=== PATIENT | female | born 1940 | race Caucasian/White ===

== ENCOUNTER 2023-08-09 23:05 | Emergency (ER) | payer OTHER, SELFPAY ==
[2023-08-09 23:08] VITALS: BP 164/74
--- NOTE | 2023-08-09 23:59 | ED.GENMED ---
Addendum entered and electronically signed by Benton Read Jr., PA-C 08/13/23 09:54:
The patient was contacted in regard to a positive urine culture. Case was discussed with the patient and she claims that she will be following up with the primary care doctor today we will have a discussion of potential antibiotics at which is an
roughly 1 hour from my discussion with her.
Original Note:
History of Present Illness
General
Chief Complaint: Fall
Source: patient and family
Exam Limitations: none
Time Seen by Provider: 08/09/23 23:33
Nursing documentation reviewed up to this point in time: agreed with
Travel History
Have you had any contact with someone who has COVID-19?: No
Do you have any symptoms of coronavirus? Fever > 100 degrees, chills, cough, shortness of breath, sore throat, loss of taste or smell, muscle aches, or headache?: No
History of Present Illness
History of Present Illness:
Pleasant 82-year-old female presents with head injury, right shoulder pain and right finger pain. Patient has a history of right hip replacement and is due for a left hip replacement. She sees Dr. Ibrahim, orthopedics. Patient was not in good enough
shape for left hip replacement surgery so they were going to start with an injection. They attempted an injection in the office but she was too contracted to get the placement. She is scheduled to get an injection under fluoroscopy. Due to the
contractures and her inability to walk easily, she has been sitting much of the day. Tonight she was in her chair at home and wanted to reach for something on a nearby table and leaned over and struck her head. She had bleeding but denied loss of
consciousness. She did hurt her right shoulder and right hands. Reports no other injury. Patient lives with daughter in their home. Daughter is concerned because patient is having difficulty navigating steps. Her bedroom is on the second floor.
Patient on Pradaxa for atrial fibrillation.
Vital signs are stable. Patient not hypoxic
Nursing note reviewed. I agree with nursing documentation up to this point in time.
Home Meds and allergies reviewed.
NUMBER AND COMPLEXITY OF PROBLEMS ADDRESSED AT THE ENCOUNTER
� Chronic conditions affecting care: Atrial fibrillation, chronic hip pain, semiacute contractures,
� Acute Exacerbation and/or Progression of Chronic Illness: Increased pain from hip.
� Differential Diagnosis includes: Head injury, concussion, intracerebral bleed,
AMOUNT AND/OR COMPLEXITY OF DATA TO BE REVIEWED AND ANALYZED
I performed an independent evaluation of the following and my interpretation is:
EKG:
CT:
CT cervical spine
Comparison: CT head and cervical spine 06/09/2023
IMPRESSION:
CT head:
Right parietal scalp hematoma
No calvarial fracture.
No acute intracranial findings
Global cerebral volume loss and chronic small vessel ischemic changes in white matter
CT cervical spine:
No traumatic injury. No fracture or significant malalignment of the cervical spine
Appreciable regional soft tissue swelling
Prominent multilevel degenerative changes
X-rays: Small fracture Right hand third digit
Ultrasound:
Laboratory Studies: H&H is 11.3/35.2. BUN is 39 creatinine 0.9
Other:
Review of other/old records:
Clinical information was obtained by an independent historian: Daughter who is present at the bedside
Prescriptions/Medications Considered but not given:
Further testing considered but not performed:
RISK OF COMPLICATIONS AND/OR MORBIDITY OR MORTALITY OF PATIENT MANAGEMENT
Social determinants of health affecting care: Good Social Support. Lives on the second floor and is having difficulty climbing steps
Discussion with other providers:
Escalation of care including admission/observation vs risk of discharge considered:
CRITICAL CARE NOTE:
Total Time (exclusive of procedures):
Update:
Past History
Past History
ED Past Medical History: Arrthythmia (Atrial fib), Cancer, HTN, Hypercholesterolemia, NIDDM, Other ('mrsa') and Other (Arthritis, abd hernias)
ED Past Surgical History: Appendectomy, Gynecological (Hysterectomy) and Orthopedic
Social History
Tobacco: Non-smoker
Alcohol: None
Drug: None
Personal:
Living: with family (Resides with her daughter)
Employment: Retired
Family History
Family History: Diabetes and Other (Stroke)
Review of Systems
Review of Systems
Allergies reviewed?: Yes
All Other Systems: ROS reviewed and negative except as documented in HPI and ROS
Psychiatric: Reports depression (Patient has chronic depression daughter states that her duloxetine dose was increased.) and anxiety
Phy Exam
General Physical Exam
General Presentation: mild distress
General age: other
General Skin: warm and dry
General Habitus: normal
General Mental: alert
General Hydration: appears well hydrated
ENT Exam
ENT Exam: EOMI, pharynx normal, neck supple and normocephalic
Eye Exam
Eye Exam: PERRL, cornea clear and conjunctiva normal
Cardiovascular Exam
Cardiovascular Exam: irregularly irregular
Pulmonary Exam
Pulmonary Exam: lungs clear, no respiratory distress, no rales, no crackles, no rhonchi, no stridor, no wheezing and no cough
Gastrointestinal Exam
Gastrointestinal Exam: normal bowel sounds, non tender, soft, no organomegaly, no pulsatile mass and non distended
Neurological Exam
Neurological Exam: alert, oriented x3, no motor deficits and speech normal
Musculoskeletal Exam
Musculoskeletal Exam: neuro vasc intact and other (Ecchymosis above the fingers 2 and 3 on the right)
Skin Exam
Skin Exam: normal color, warm/dry, no rash and no petechia
Psychiatric Exam
Psychiatric Exam: normal mood/affect
Course
Orders/Labs/Results
Orders:
Orders
08/09/23 23:31
Urinalysis Reflex To Culture Urgent
Date Specimen was Collected: 08/10/23
Time Specimen was Collected: 00:56
08/09/23 23:53
Complete Blood Count/With Diff Urgent
Comprehensive Metabolic Panel Urgent
PTT Urgent
Prothrombin Time Urgent
Troponin I Urgent
08/10/23 00:01
CR Hand - Right Min 3 Views Urgent
Reason For Exam: fall
CR Shoulder, Trauma - Right Urgent
Reason For Exam: pain from fall
08/10/23 00:15
CT Cervical Spine W/o Iv Contr Urgent
Reason For Exam: fall
CT Head W/o Iv Contrast Urgent
Reason For Exam: fall
08/10/23 01:05
Urine Microscopic Reflex Cult Urgent
Urine Culture Urgent
[facility]AN[facility] Source: U
Specimen Description:
Date Specimen was Collected: 08/10/23
Time Specimen was Collected: 00:56
08/10/23 01:37
Tramadol HCl [Ultram] 50 mg PO NOW STA
08/10/23 02:14
Fosfomycin [Monurol] 3 gm PO ONCE ONE
Abnormal Lab Results
08/09/23 08/10/23
23:53 01:05
RBC 3.84 L 10^6/uL
(4.20-5.40)
Hgb 11.3 L g/dL
(12.0-16.0)
Hct 35.2 L %
(37.0-47.0)
MCHC 32.1 L g/dL
(33.0-37.0)
RDW 14.6 H %
(11.5-14.5)
Absolute Lymphs (auto) 0.6 L 10^3/uL
(1.2-3.4)
Absolute Monos (auto) 0.7 H 10^3/uL
(0.1-0.6)
Neutrophils % 81.9 H %
(42.2-75.2)
Lymphocytes % 7.8 L %
(20.5-51.1)
PT 16.9 H Sec
(11.4-14.6)
APTT 38.7 H Sec
(23.4-35.0)
Sodium 134 L mmol/L
(135-145)
BUN 39 H mg/dl
(7-17)
Glucose 140 H mg/dl
(70-99)
Ur Occult Blood Reflex 2+ A
(Negative)
Urine Nitrite (Reflex) Positive A
(Negative)
Urine Bilirubin 1+ A
(Negative)
Leukocyte Esterase Rfl 2+ A
(Negative)
Urine RBC 30-40 A /HPF
(0-2)
Urine WBC (Reflex) 50-60 A /HPF
(0-5)
Urine Bacteria (Reflex) Many A
(Negative)
08/09/23 23:53
08/09/23 23:53
Vital Signs
Initial and Last Documented VS:
Initial Vital Signs
Temp Pulse Resp BP Pulse Ox
97.7 F 76 17 164/74 99
08/09/23 23:08 08/09/23 23:08 08/09/23 23:08 08/09/23 23:08 08/09/23 23:08
Last Documented Vital Signs
Temp Pulse Resp BP Pulse Ox
97.7 F 75 18 162/72 96
08/09/23 23:08 08/10/23 03:30 08/10/23 03:30 08/10/23 03:30 08/10/23 03:30
*Critical Care Note
Total Time (30-74mins, 75-104mins- exclusive of procedures): Not Applicable
Update Note
Update Note:
08/10/2023 0157 AM: Discussed admission with this patient. Patient absolutely refuses. Daughter feels that it would be safe to take patient home. She has a recliner that daughter can move to the first floor.
Laceration to right scalp is very superficial almost an abrasion. No repair necessary.
ED Attending Note
-
Portions of this chart may have been created with voice recognition software.� Occasional wrong word or��sound alike� substitutions may have occurred due to the inherent limitations of voice recognition software.
Discharge Plan
Departure
Patient Disposition: Home (Routine Discharge)
Date of Disposition: 08/10/23
Time of Disposition: 02:53
Patient with high blood pressure during this ER visit?: Yes
Condition: Fair
Discharge Problem:
Fall, Contusion of scalp, Fracture of finger, Chronic hip pain, Acute UTI
Instructions: Wound Care (DC), Head Injury in Adults (DC), Contusion (DC), Preventing falls in adults, Finger Fracture (DC), Urinary Tract Infection, Adult ED, BLOOD PRESSURE
Prescriptions:
No Action
metformin 500 MG tablet
500 mg PO BID@0800,1700
prednisone 1 MG tablet
5 mg PO DAILY
cholecalciferol (vitamin D3) 2,000 UNITS tablet
2,000 unit PO DAILY
dabigatran etexilate [Pradaxa] 150 MG capsule
150 mg PO BID
carvedilol 12.5 MG tablet
12.5 mg PO BID
amoxicillin 500 MG capsule
2,000 mg PO DAILY PRN (Reason: prior to dental procedures)
losartan 50 mg tablet
50 mg PO BID
atorvastatin 20 mg tablet
20 mg PO DAILY
amiodarone 200 mg tablet
200 mg PO DAILY
amlodipine 2.5 mg tablet
2.5 mg PO DAILY
duloxetine 60 mg capsule,delayed release(DR/EC)
60 mg PO DAILY
vitamin E 268 mg (400 unit) Capsule
180 mg PO DAILY
calcium citrate 200 mg (950 mg) Tablet
600 mg PO DAILY
Myrbetriq 50 mg tablet extended release 24 hr
50 mg PO DAILY
acetaminophen 325 mg Tablet
650 mg PO Q6HPRN PRN (Reason: mild pain/ fever>100.5F) Qty: 0 0RF
Referrals:
Yrn Chavez MD [Active] -
Thomas Dill MD [Family Provider] -
Interventions
Interventions:
*Risk Screen - Suicide Last Done: 08/09/23 23:08
*General Assessment Last Done: 08/09/23 23:08
*Neglect/Abuse Screening Last Done: 08/09/23 23:08
ED- Fall Risk Assessment Last Done: 08/09/23 23:08
*ED COVID-19 Vaccine History Last Done: 08/09/23 23:08
*Nursing Disposition Last Done: 08/10/23 03:30
ED-Musculoskeletal Assessment Last Done: 08/10/23 00:00
ED- Neurological Assessment Last Done: 08/10/23 00:00
ED-Skin Assessment Last Done: 08/09/23 23:41
Discharge Date and Time
Discharge Date/Time: 08/10/23 03:30
[2023-08-10] VITALS: BMI 27.0
[2023-08-10 00:07] LABS: % Basophils 0.3 % (0-2); % Eosinophils 0.8 % (0-6); % Immature Granulocytes 0.4 % (0-0.5); % Lymphocytes 7.8 % (20.5-51.1); % Monocytes 8.8 % (1.7-9.3); % Neutrophils 81.9 % (42.2-75.2); Absolute Eosinophils 0.1 10^3/uL (0-0.7); Absolute Lymphocytes 0.6 10^3/uL (1.2-3.4); Absolute Monocytes 0.7 10^3/uL (0.1-0.6); Absolute Neutrophils 6.5 10^3/uL (1.4-6.5); Hematocrit 35.2 % (37.0-47.0); Hemoglobin 11.3 g/dL (12.0-16.0); Mean Corp Hgb Conc. 32.1 g/dL (33.0-37.0); Mean Corpuscular Hgb 29.4 pg (27.0-31.0); Mean Corpuscular Volume 91.7 fL (81.0-99.0); Mean Platelet Volume 9.6 fL (7.4-10.4); Nucleated Red Blood Cells % 0 %; Platelet Count 271 10^3/uL (130-400); Red Blood Cell Count 3.84 10^6/uL (4.20-5.40); Red Cell Dist. Width 14.6 % (11.5-14.5)
[2023-08-10 00:16] LABS: INR 1.37; PT 16.9 Sec (11.4-14.6)
[2023-08-10 00:17] LABS: APTT 38.7 Sec (23.4-35.0)
[2023-08-10 00:29] LABS: ALT (SGPT) 23 U/L (0-35); AST (SGOT) 32 U/L (14-36); Albumin 3.8 g/dl (3.5-5.0); Alkaline Phosphatase 75 U/L (38-126); Blood Urea Nitrogen 39 mg/dl (7-17); Calcium 8.7 mg/dl (8.4-10.2); Carbon Dioxide 28 mmol/L (22-30); Chloride 102 mmol/L (98-107); Estimated Creatinine Clearance 38 ml/min; Glucose 140 mg/dl (70-99); Potassium 4.5 mmol/L (3.5-5.1); Sodium 134 mmol/L (135-145); Total Bilirubin 0.7 mg/dl (0.2-1.3); Total Protein 6.6 g/dl (6.3-8.2); eGFR > 60.00
[2023-08-10 00:32] LABS: Troponin I < 0.012 ng/ml
[2023-08-10 01:30] LABS: Urine Albumin Trace (Neg - Trace); Urine Bilirubin 1+ (Negative); Urine Character Slightly Cloudy (Clear); Urine Color Yellow; Urine Glucose Negative (Negative); Urine Ketone Negative (Negative); Urine Leukocyte 2+ (Negative); Urine Nitrite Positive (Negative); Urine Occult Blood 2+ (Negative); Urine Urobilinogen Negative (Neg - 1+)
[2023-08-10 01:45] LABS: Urine Red Blood Cell 30-40 /HPF (0-2)
[2023-08-10 01:46] LABS: Urine Bacteria Many (Negative); Urine White Cell 50-60 /HPF (0-5)
[2023-08-10] MEDS: ULTRAM 50 MG PO (01:49)
[2023-08-10 01:52] VITALS: BP 150/71
[2023-08-10] MEDS: MONUROL 3 GM PO (02:35)
[2023-08-10 03:00] VITALS: BP 162/72
[2023-08-10 03:30] VITALS: BP 162/72
== END 2023-08-10 03:30 | disposition home or self-care (01) ==
LOC: EMR 23:05
PROVIDERS: EMERGENCY PHYSICIAN Student in an Organized Health Care Education/Training Program; FAMILY PHYSICIAN Internal Medicine Geriatric Medicine
DX: N39.0 Urinary tract infection, site not specified (principal); S62.609A Fracture of unspecified phalanx of unspecified finger, initial encounter for closed fracture; S00.03XA Contusion of scalp, initial encounter; M25.559 Pain in unspecified hip; M79.644 Pain in right finger(s); M25.511 Pain in right shoulder; W22.8XXA Striking against or struck by other objects, initial encounter; M62.40 Contracture of muscle, unspecified site; R26.2 Difficulty in walking, not elsewhere classified; I67.82 Cerebral ischemia; I48.91 Unspecified atrial fibrillation; F32.A Depression, unspecified; F41.9 Anxiety disorder, unspecified; E78.00 Pure hypercholesterolemia, unspecified; E11.9 Type 2 diabetes mellitus without complications; I10 Essential (primary) hypertension; M19.90 Unspecified osteoarthritis, unspecified site; G89.29 Other chronic pain; Z96.641 Presence of right artificial hip joint; Z86.14 Personal history of Methicillin resistant Staphylococcus aureus infection; Z85.3 Personal history of malignant neoplasm of breast; Z79.01 Long term (current) use of anticoagulants; Z79.84 Long term (current) use of oral hypoglycemic drugs; Z88.5 Allergy status to narcotic agent; Z88.8 Allergy status to other drugs, medicaments and biological substances; Z91.048 Other nonmedicinal substance allergy status
CPT/HCPCS: 99285; 70450; 72125; 73030; 73130; 80053; 81003; 81015; 84484; 85025; 85610; 85730; 87077; 87086; 87186

== ENCOUNTER 2024-01-30 23:47 | Emergency (ER) | payer OTHER, SELFPAY ==
[2024-01-30 23:51] VITALS: BP 185/96
--- NOTE | 2024-01-31 01:05 | ED.GENMED ---
Addendum entered and electronically signed by Marianne Lezama PA-C 02/03/24 10:52:
Klebsiella positive urine, I spoke with the patient and she is uncomfortable having urinary frequency and urgency and cannot hold her urine but she is not having any systemic symptoms so I will call her in Keflex which this should be sensitive to 4
times a day for 7 days. Additionally the patient is complaining that the rash that she had in her right groin and right back is worse and more painful and it definitely looks like shingles. I reviewed the ED attending's note and she had suspected
shingles but did not start her on antiviral. It has been several days however because of her steroid chronic use for her arthritis I will put her on the valacyclovir as well however I strongly encouraged the patient to either come back in for
reevaluation if she is worse or see her doctor as soon as possible tomorrow. It does not sound like it is causing dermatomes
Original Note:
History of Present Illness
General
Chief Complaint: Abdominal Symptoms
Source: patient, family (Daughter whom the patient resides with.) and previous hospital records (ED visit August of this year as well as June 2023 after suffering similar falls.)
Exam Limitations: none
Time Seen by Provider: 01/31/24 00:03
Nursing documentation reviewed up to this point in time: agreed with
History of Present Illness
History of Present Illness:
This is an 83-year-old woman who resides at home with her daughter. She has longstanding history of severe osteoarthritis, chronic ambulatory dysfunction with limited ambulation, uses a rollator at home. She has history of frequent falls and
suffered a mechanical fall 1 week ago while reaching for EpiPen and paper while talking on the phone with her daughter. Patient believes she fell onto her right side and did strike her head but states her head strike was 'minor'. No loss of
consciousness and she has been ambulatory since that fall but complains of severe aching pain right hip radiating to her right anterolateral proximal thigh.
She has history of chronic left hip, follows with orthopedics, Dr. Javed and underwent steroid injection to her left hip approximately a year ago and then repeat injection September of this year. No improvement in pain despite these injections and in
fact patient and daughter believe her left hip pain has worsened since her last injection in September.
She follows with rheumatology due to chronic osteoarthritis, chronically maintained on prednisone 4 mg daily. She has been on this dose for approximately the past year.
History of PAF chronically maintained on amiodarone as well as Pradaxa.
She complains of intermittent dysphagia which she describes as occasional food and/or pills being stuck in her distal throat/esophagus. Similar episode happened when she swallowed a pill 3 days ago. She has had no coughing or gagging with
swallowing but has had somewhat decreased appetite since that incident with intermittent nausea but no vomiting. She reports 3-day history of loose stools, passing several nonbloody loose stools over the past 3 days but no bowel movement today.
She is generally chronically constipated and feels the urge to pass a bowel movement but has not done so today.
She has history of intermittent UTIs and has had mild increased urinary frequency over the past few days. She denies neck pain nor back pain or flank pain.
She has not had a fever. No palpitations, no dizziness nor lightheadedness but does note mild posterior headache tonight.
Daughter states physical therapy is scheduled to start February 03. There has also been consideration for acute respite care.
She does note chronic pain, chronic stiffness, takes Tylenol several times a day as well as tramadol.
Chronic bilateral lower extremity edema has been unchanged.
Chronically sleeps in a recliner.
Past History
Past History
ED Past Medical History: Arrthythmia (Atrial fib), Cancer, HTN, Hypercholesterolemia, NIDDM, Other ('mrsa') and Other (Severe osteo arthritis, chronic ambulatory dysfunction, frequent falls, UTIs, chronic constipation, abd hernias)
ED Past Surgical History: Appendectomy, Gynecological (Hysterectomy) and Orthopedic
Social History
Tobacco: Non-smoker
Alcohol: None
Drug: None
Personal:
Living: with family (Resides with her daughter)
Employment: Retired
Family History
Family History: Diabetes and Other (Stroke)
Phy Exam
Physical Exam
Physical Exam:
GENERAL: 83-year-old woman appears her stated age, appears somewhat chronically debilitated, preferentially keeping her eyes closed during exam but answering questions appropriately, easily conversant. Daughter is at bedside.
EYE: Head is normocephalic, atraumatic, pupils equal and reactive. Extraocular muscles intact. Anicteric
NECK: Supple, nontender, no meningismus, no significant adenopathy. Full range of motion without difficulty nor pain.
ENT: posterior pharynx is clear, oral mucosa is minimally dry. TM clear b/l, nares patent without rhinorrhea.
CARDIAC: Regular rate and rhythm. 2/6 holosystolic murmur
LUNGS: Clear breath sounds bilaterally, no acute respiratory distress, no wheezes/rales/rhonchi. No chest wall tenderness.
ABDOMEN: Soft, nondistended, without focal tenderness, palpable firm stool left lower quadrant, no r/g, no cvat. normoactive BS.
BACK: No midline bony tenderness. Marked thoracic kyphosis. Marked difficulty assisting patient to sit up requiring daughter and myself to assist with repositioning from supine to sitting upright. Marked truncal as well as bilateral hip,
bilateral knee joint stiffness.
NEUROLOGICAL: Alert and oriented x3, no focal neuro deficits. Motor strength is 5/5 bilateral upper extremities, +4/5 bilateral lower extremities. Gross sensation is intact.
SKIN: Warm and dry, normal color, scattered small circular erythematous plaques to right posterior trunk, bilateral anterolateral thighs which daughter states are chronic in nature. She does however have small grouping of tiny erythematous papular
vesicular eruption right anterior distal groin.
MUSCULOSKELETAL: +1-2 pitting edema bilateral lower extremities, mildly diminished dorsalis pedis pulse on the left compared to right, minimally sluggish capillary refill left toes, markedly limited range of motion bilateral hips with moderate
stiffness and mild to moderate pain with range of motion bilateral hips. There is mild crepitus left hip and left knee with range of motion. No gross deformity. No leg length discrepancy.
PSYCH: Normal and appropriate interaction.
Course
Orders/Labs/Results
Orders:
Orders
01/31/24 00:40
CT Head W/o Iv Contrast Urgent
Comment:
Reason For Exam: FREQUENT FALLS, HEAD INJURY, POST H/A
Hips, Bilat 3-4 view W/AP Pelvis [CR Hips KIKI w/wo Pel 3-4 Vw] Urgent
Comment:
Reason For Exam: acute on chronic b/l hip pain; fall 1 week ago
Include a pelvis x-ray?: Yes
01/31/24 00:41
CR Obstruct Series W/pa Chest Urgent
Comment:
Reason For Exam: Constipation, lower abd discomfort, nausea
01/31/24 00:42
Electrocardiogram (*1) Urgent
Reason for Study: Shortness of Breath
EKG- Treatment ONCE
01/31/24 01:07
Urinalysis Reflex To Culture Urgent
Date Specimen was Collected: 01/31/24
Time Specimen was Collected: 01:06
Urine Microscopic Reflex Cult Urgent
Urine Culture Urgent
HIMANSHU Source: U
Specimen Description:
Date Specimen was Collected: 01/31/24
Time Specimen was Collected: 01:06
01/31/24 02:01
CPK [Creatine Phosphokinase] Urgent
CRP [C-Reactive Protein] Urgent
Complete Blood Count/With Diff Urgent
Comprehensive Metabolic Panel Urgent
Lipase Urgent
NT-proBNP Urgent
Sed Rate [Erythrocyte Sed Rate] Urgent
TSH Reflex To Free T4 Urgent
Troponin I Urgent
01/31/24 02:41
CT Lower Ext W/o Iv Cont Rt Urgent
Comment:
Reason For Exam: severe pain R hip. (?)mitzi-prosthetic fx
Morphine Sulfate 2 mg IV NOW STA
Abnormal Lab Results
01/31/24 01/31/24
01:07 02:01
RBC 3.56 L 10^6/uL
(4.20-5.40)
Hgb 10.3 L g/dL
(12.0-16.0)
Hct 32.1 L %
(37.0-47.0)
MCHC 32.1 L g/dL
(33.0-37.0)
RDW 14.8 H %
(11.5-14.5)
Absolute Lymphs (auto) 0.6 L 10^3/uL
(1.2-3.4)
Absolute Monos (auto) 0.8 H 10^3/uL
(0.1-0.6)
Neutrophils % 77.5 H %
(42.2-75.2)
Lymphocytes % 8.6 L %
(20.5-51.1)
Monocytes % 11.4 H %
(1.7-9.3)
ESR 38 H mm/hour
(0-20)
Carbon Dioxide 31 H mmol/L
(22-30)
Glucose 124 H mg/dl
(70-99)
Total Protein 6.2 L g/dl
(6.3-8.2)
Leukocyte Esterase Rfl Trace A
(Negative)
Urine Bacteria (Reflex) Moderate A
(Negative)
01/31/24 02:01
01/31/24 02:01
Vital Signs
Initial and Last Documented VS:
Initial Vital Signs
Temp Pulse Resp BP Pulse Ox
98.0 F 83 20 185/96 99
01/30/24 23:51 01/30/24 23:51 01/30/24 23:51 01/30/24 23:51 01/30/24 23:51
Last Documented Vital Signs
Temp Pulse Resp BP Pulse Ox
98.4 F 84 11 161/69 96
01/31/24 04:57 01/31/24 05:17 01/31/24 05:17 01/31/24 05:17 01/31/24 04:57
MDM/Problems Addressed
Differential Diagnosis Includes:
Concern for acute on chronic osteoarthritis with acute on chronic ambulatory dysfunction.
With history of fall, head injury 1 week ago, headache, maintained on Pradaxa, concern for traumatic intracranial injury thus will check CT of the head.
With reported decreased oral intake over the past several days, nausea, loose stools concern for acute kidney injury/dehydration, electrolyte abnormality.
Concern for UTI, occult hip/pelvis fracture.
Will check obstruction series, bilateral hip and pelvis x-ray.
Will check labs, inflammatory markers, urinalysis.
*Radiology
Radiology exam reviewed: preliminary read by ED provider ( Obstruction series unremarkable. Stable chronic right lateral rib deformity, nonspecific bowel gas. No bowel obstruction nor significant constipation. Advanced/severe DJD of left hip.
Right total hip replacement. I question a periprosthetic fracture right hip at lesser trochanter. A new findi) and radiology read reviewed (CT of the head shows no acute traumatic findings.)
*Pulse Oximetry
Patient hypoxic: no
*EKG
Interpreted by ED Provider?: Yes
Interpretation: normal
Comparison EKG: changes noted (Normal sinus rhythm has replaced atrial fibrillation noted August 2020)
Rate: normal
Rhythm: sinus
[place]: normal axis
Interval: normal interval
QRS Pattern: normal QRS
Ischemia: no ischemia
*Produce Inspector Interpretation
Rate: normal
Interpretation: normal
Rhythm: sinus
*Critical Care Note
Total Time (30-74mins, 75-104mins- exclusive of procedures): Not Applicable
Update Note
Update Note:
Chest x-ray/obstruction series essentially unremarkable.
Hip x-rays show severe/advanced DJD of left hip. Right total hip replacement with questionable periprosthetic fracture lesser trochanter that is new compared to previous film 2020.
Will check CT right hip to assess for potential periprosthetic fracture.
CT of the head shows no acute traumatic findings.
Patient currently sitting up on side of the stretcher, overall appears well. She does admit to chronic flexion contracture of her left hip and feels best when she is sitting upright.
Will give a small IV dose of morphine prior to the CT.
01/31/[address] of the right hip shows no acute fracture.
Labs are essentially unremarkable. Minimally elevated sed rate of 38, normal CRP. BNP minimally elevated at 900 but no evidence of CHF on chest x-ray. Normal troponin, normal TSH.
Urinalysis shows moderate bacteria but only 6-10 WBCs, 3-5 squamous epithelial cells. Not definitively consistent with UTI and currently has no UTI symptoms. Will hold off on antibiotic and instead await urine culture.
Patient does have significant chronic joint pain related to osteoarthritis, overall appears stable.
Right inguinal rash not definitively convincing for herpes zoster. Recommend keeping an eye on rash and if progresses with further grouped/clusters of papulovesicular rash, prompt call to Dr. Dill for initiation of antiviral medication.
She is comfortable being discharged to home.
Recommend prompt follow-up with PCP, Dr. Dill. Could consider referral to dip painter.
She is scheduled to initiate outpatient physical therapy February 03.
ED Attending Note
-
Portions of this chart may have been created with voice recognition software.� Occasional wrong word or��sound alike� substitutions may have occurred due to the inherent limitations of voice recognition software.
Discharge Plan
Departure
Patient Disposition: Home (Routine Discharge)
Date of Disposition: 01/31/24
Time of Disposition: 05:46
Patient with high blood pressure during this ER visit?: No
Condition: Good
Discharge Problem:
Exacerbation of chronic arthritic pain, chronic ambulatory dysfunction, advanced osteoarthritis left hip
Instructions: Osteoarthritis, Fall Prevention for Older Adults
Prescriptions:
No Action
metformin 500 MG tablet
500 mg PO BID@0800,1700
prednisone 1 MG tablet
5 mg PO DAILY
cholecalciferol (vitamin D3) 2,000 UNITS tablet
2,000 unit PO DAILY
dabigatran etexilate [Pradaxa] 150 MG capsule
150 mg PO BID
carvedilol 12.5 MG tablet
12.5 mg PO BID
amoxicillin 500 MG capsule
2,000 mg PO DAILY PRN (Reason: prior to dental procedures)
losartan 50 mg tablet
50 mg PO BID
atorvastatin 20 mg tablet
20 mg PO DAILY
amiodarone 200 mg tablet
200 mg PO DAILY
amlodipine 2.5 mg tablet
2.5 mg PO DAILY
duloxetine 60 mg capsule,delayed release(DR/EC)
60 mg PO DAILY
vitamin E 268 mg (400 unit) Capsule
180 mg PO DAILY
calcium citrate 200 mg (950 mg) Tablet
600 mg PO DAILY
Myrbetriq 50 mg tablet extended release 24 hr
50 mg PO DAILY
acetaminophen 325 mg Tablet
650 mg PO Q6HPRN PRN (Reason: mild pain/ fever>100.5F) Qty: 0 0RF
Referrals:
Thomas Dill MD [Family Provider] - Call in 1-3 days for appt
Blu Ibrahim MD [Active] - Call in 1-3 days for appt
UNKNOWN - PT DOES,NOT KNOW [Unknown Provider] -
Interventions
Interventions:
*Risk Screen - Suicide Last Done: 01/31/24 02:05
*General Assessment Last Done: 01/31/24 01:41
*Neglect/Abuse Screening Last Done: 01/31/24 02:04
ED- Fall Risk Assessment Last Done: 01/31/24 02:06
OV-Wnpkmw-Ajwgkkdmpf Assessment Last Done: 01/31/24 01:36
Discharge Date and Time
Print Language: BRAZILIAN
[2024-01-31 01:15] LABS: Urine Albumin Negative (Neg - Trace); Urine Bilirubin Negative (Negative); Urine Character Clear (Clear); Urine Color Yellow; Urine Glucose Negative (Negative); Urine Ketone Negative (Negative); Urine Leukocyte Trace (Negative); Urine Nitrite Negative (Negative); Urine Occult Blood Negative (Negative); Urine Urobilinogen Negative (Neg - 1+)
[2024-01-31 01:21] LABS: Urine Bacteria Moderate (Negative); Urine Red Blood Cell 0-2 /HPF (0-2)
[2024-01-31 02:09] LABS: % Basophils 0.1 % (0-2); % Eosinophils 2.1 % (0-6); % Immature Granulocytes 0.3 % (0-0.5); % Lymphocytes 8.6 % (20.5-51.1); % Monocytes 11.4 % (1.7-9.3); % Neutrophils 77.5 % (42.2-75.2); Absolute Eosinophils 0.2 10^3/uL (0-0.7); Absolute Lymphocytes 0.6 10^3/uL (1.2-3.4); Absolute Monocytes 0.8 10^3/uL (0.1-0.6); Absolute Neutrophils 5.4 10^3/uL (1.4-6.5); Hematocrit 32.1 % (37.0-47.0); Hemoglobin 10.3 g/dL (12.0-16.0); Mean Corp Hgb Conc. 32.1 g/dL (33.0-37.0); Mean Corpuscular Hgb 28.9 pg (27.0-31.0); Mean Corpuscular Volume 90.2 fL (81.0-99.0); Mean Platelet Volume 9.2 fL (7.4-10.4); Nucleated Red Blood Cells % 0 %; Platelet Count 243 10^3/uL (130-400); Red Blood Cell Count 3.56 10^6/uL (4.20-5.40); Red Cell Dist. Width 14.8 % (11.5-14.5)
[2024-01-31 02:30] VITALS: BP 185/80
[2024-01-31 02:46] LABS: NT-proBNP 953 pg/ml; Troponin I < 0.012 ng/ml
[2024-01-31] MEDS: MORPHINE SULFATE 2 MG IV (02:59)
[2024-01-31 03:03] LABS: TSH Reflex To Free T4 1.05 uIU/ml (0.47-4.68)
[2024-01-31 03:04] LABS: ALT (SGPT) 24 U/L (0-35); AST (SGOT) 32 U/L (14-36); Albumin 3.6 g/dl (3.5-5.0); Alkaline Phosphatase 78 U/L (38-126); Blood Urea Nitrogen 12 mg/dl (7-17); Calcium 9.1 mg/dl (8.4-10.2); Carbon Dioxide 31 mmol/L (22-30); Chloride 99 mmol/L (98-107); Creatine Phosphokinase 43 U/L (30-135); Glucose 124 mg/dl (70-99); Lipase 44 U/L (23-300); Sodium 135 mmol/L (135-145); Total Bilirubin 0.7 mg/dl (0.2-1.3); Total Protein 6.2 g/dl (6.3-8.2); eGFR > 60.00
[2024-01-31 03:51] LABS: Erythrocyte Sed Rate 38 mm/hour (0-20)
[2024-01-31 04:57] VITALS: BP 164/66
[2024-01-31 05:17] VITALS: BP 161/69
[2024-01-31 06:00] VITALS: BP 144/66
== END 2024-01-31 06:44 | disposition home or self-care (01) ==
LOC: EMR 23:47
PROVIDERS: EMERGENCY PHYSICIAN Emergency Medicine; FAMILY PHYSICIAN Internal Medicine Geriatric Medicine
DX: I48.91 Unspecified atrial fibrillation (principal); I10 Essential (primary) hypertension; E78.00 Pure hypercholesterolemia, unspecified; E11.9 Type 2 diabetes mellitus without complications; K59.00 Constipation, unspecified; M16.0 Bilateral primary osteoarthritis of hip; Z79.52 Long term (current) use of systemic steroids; Z82.3 Family history of stroke; Z83.3 Family history of diabetes mellitus; Z87.440 Personal history of urinary (tract) infections; Z90.49 Acquired absence of other specified parts of digestive tract; Z90.710 Acquired absence of both cervix and uterus; Z96.641 Presence of right artificial hip joint
CPT/HCPCS: 99284; 96374; 70450; 73522; 73700; 74022; 80053; 81003; 81015; 82550; 83690; 83880; 84443; 84484; 85025; 85652; 86140; 87077; 87086; 87186; 93005

== ENCOUNTER → 2024-03-07 09:09 | Outpatient (REF) | payer OTHER, SELFPAY ==
[2024-03-07 10:31] LABS: % Basophils 0.1 % (0-2); % Eosinophils 1.9 % (0-6); % Immature Granulocytes 0.4 % (0-0.5); % Lymphocytes 10.8 % (20.5-51.1); % Monocytes 9.3 % (1.7-9.3); % Neutrophils 77.5 % (42.2-75.2); Absolute Eosinophils 0.1 10^3/uL (0-0.7); Absolute Lymphocytes 0.8 10^3/uL (1.2-3.4); Absolute Monocytes 0.7 10^3/uL (0.1-0.6); Absolute Neutrophils 5.6 10^3/uL (1.4-6.5); Hemoglobin 10.5 g/dL (12.0-16.0); Mean Corp Hgb Conc. 30.9 g/dL (33.0-37.0); Mean Corpuscular Hgb 28.8 pg (27.0-31.0); Mean Corpuscular Volume 93.2 fL (81.0-99.0); Mean Platelet Volume 9.8 fL (7.4-10.4); Nucleated Red Blood Cells % 0 %; Platelet Count 288 10^3/uL (130-400); Red Blood Cell Count 3.65 10^6/uL (4.20-5.40); Red Cell Dist. Width 15.4 % (11.5-14.5); White Blood Cell Count 7.2 10^3/uL (4.8-10.8)
[2024-03-07 10:35] LABS: Urine Albumin Negative (Neg - Trace); Urine Bilirubin Negative (Negative); Urine Character Clear (Clear); Urine Color Yellow; Urine Glucose Negative (Negative); Urine Ketone Negative (Negative); Urine Leukocyte 1+ (Negative); Urine Nitrite Negative (Negative); Urine Occult Blood 1+ (Negative); Urine Urobilinogen Negative (Neg - 1+)
[2024-03-07 10:48] LABS: Urine Mucus Few
[2024-03-07 10:49] LABS: Urine Bacteria Few (Negative)
[2024-03-07 10:53] LABS: Erythrocyte Sed Rate 29 mm/hour (0-20)
[2024-03-07 11:00] LABS: NT-proBNP 178 pg/ml
[2024-03-07 11:10] LABS: ALT (SGPT) 20 U/L (0-35); AST (SGOT) 27 U/L (14-36); Albumin 3.9 g/dl (3.5-5.0); Alkaline Phosphatase 67 U/L (38-126); Blood Urea Nitrogen 19 mg/dl (7-17); Calcium 9.1 mg/dl (8.4-10.2); Carbon Dioxide 32 mmol/L (22-30); Chloride 103 mmol/L (98-107); Glucose 120 mg/dl (70-99); HDL Cholesterol 75 mg/dl; LDL Cholesterol, Calculated 77 mg/dl; Potassium 4.1 mmol/L (3.5-5.1); Sodium 143 mmol/L (135-145); Total Bilirubin 0.6 mg/dl (0.2-1.3); Total Cholesterol 165 mg/dl (50-199); Total Protein 6.5 g/dl (6.3-8.2); Triglyceride 68 mg/dl (10-149); Very Low Density Lipoprotein 13 mg/dl (0-30); eGFR > 60.00
[2024-03-07 11:14] LABS: C-Reactive Protein < 5.00 mg/L (0.0-10.00)
[2024-03-07 11:37] LABS: Vitamin D, 25-OH*** 53.1 ng/mL (30-80)
[2024-03-07 11:51] LABS: TSH 1.63 uIU/ml (0.47-4.68)
[2024-03-07 12:23] LABS: Glycohemoglobin (HgbA1c) 6.1 % (4.0-5.6)
== END ==
LOC: RAD 09:09
PROVIDERS: ATTENDING PHYSICIAN Internal Medicine Cardiovascular Disease; FAMILY PHYSICIAN Internal Medicine Geriatric Medicine; OTHER PHYSICIAN Nurse Practitioner Family; REFERRING PHYSICIAN Internal Medicine Rheumatology
DX: Z79.899 Other long term (current) drug therapy (principal); J06.9 Acute upper respiratory infection, unspecified; J47.9 Bronchiectasis, uncomplicated; I48.0 Paroxysmal atrial fibrillation; E11.9 Type 2 diabetes mellitus without complications; I10 Essential (primary) hypertension; E78.2 Mixed hyperlipidemia; I35.8 Other nonrheumatic aortic valve disorders; R06.09 Other forms of dyspnea; R26.2 Difficulty in walking, not elsewhere classified; Z99.89 Dependence on other enabling machines and devices; R53.81 Other malaise; Z13.89 Encounter for screening for other disorder; N39.0 Urinary tract infection, site not specified; M16.12 Unilateral primary osteoarthritis, left hip; M79.89 Other specified soft tissue disorders; E11.69 Type 2 diabetes mellitus with other specified complication; E21.3 Hyperparathyroidism, unspecified; E55.9 Vitamin D deficiency, unspecified; M15.0 Primary generalized (osteo)arthritis; M25.50 Pain in unspecified joint; M25.552 Pain in left hip; M35.3 Polymyalgia rheumatica; M81.0 Age-related osteoporosis without current pathological fracture
CPT/HCPCS: 36415; 71046; 80053; 80061; 81003; 81015; 82306; 83036; 83735; 83880; 84443; 84681; 85025; 85652; 86140

== ENCOUNTER → 2024-03-12 17:35 | Outpatient (REF) | payer OTHER, SELFPAY | LOC: RCS 17:35 | PROVIDERS: ATTENDING PHYSICIAN Internal Medicine Cardiovascular Disease; FAMILY PHYSICIAN Internal Medicine Geriatric Medicine | DX: I48.0 Paroxysmal atrial fibrillation (principal); R06.09 Other forms of dyspnea; I35.8 Other nonrheumatic aortic valve disorders | CPT/HCPCS: 93306 ==

== ENCOUNTER 2024-03-17 10:09 | Emergency (ER) | payer OTHER, SELFPAY ==
[2024-03-17 10:15] VITALS: BP 159/72
[2024-03-17 10:26] VITALS: BMI 25.3
--- NOTE | 2024-03-17 10:26 | EDRN ---
Dr. Fernandez in room w/ pt
--- NOTE | 2024-03-17 11:06 | EDRN ---
Dr. June and Dr. Fernandez in room w/ pt. Unable to palpate DP pulses in nuria feet, was able to hear all DP and PT pulses in feet w/ dopler though R foot DP pulse was found and heard louder than L w/ nuria PT pulses equally loud. Pt states pain is
located on lateral lower leg just below the knee.
--- NOTE | 2024-03-17 11:12 | ED.GENMED ---
History of Present Illness
<Margareth Sharma DO, Resident - Last Filed: 03/17/24 14:28>
General
Chief Complaint: Musculo-Skeletal Complaint
Source: patient and family (daughter)
Exam Limitations: none
Time Seen by Provider: 03/17/24 10:18
Nursing documentation reviewed up to this point in time: agreed with
History of Present Illness
History of Present Illness:
Ms. Vani Lane is an 83yo female w pmh afib on pradaxa, HTN, DM, HLD, prurigo nodularis presenting with L lower leg pain and swelling. Pt has chronic swelling, but the edema worsened and developed oozing blisters. Saw pcp, u/s scheduled for end
of april. Her daughter heard her crying in her sleep last night. Her daughter found her crying this morning due to the pain. Daughter states the swelling was like a 'band' around her leg. At its worst, the pain was an 8/10. Now, it is a 2/10.
Swelling has improved with positioning the foot lower than the knee.
Hx b/l knee replacement, b/l ORIF ankle, R hip replacement. Bone on bone arthritis in L hip.
Hx fall in June, did not get knee XRs. Daughter is concerned the replacements may be out of place.
Past History
<Margareth Sharma DO, Resident - Last Filed: 03/17/24 14:28>
Past History
ED Past Medical History: Arrthythmia (Atrial fib), Cancer, HTN, Hypercholesterolemia, NIDDM, Other ('mrsa') and Other (Severe osteo arthritis, chronic ambulatory dysfunction, frequent falls, UTIs, chronic constipation, abd hernias)
ED Past Surgical History: Appendectomy, Gynecological (Hysterectomy) and Orthopedic
Social History
Tobacco: Non-smoker
Alcohol: None
Drug: None
Personal:
Living: with family (Resides with her daughter)
Employment: Retired
Family History
Family History: Diabetes and Other (Stroke)
Review of Systems
<Margareth Sharma DO, Resident - Last Filed: 03/17/24 14:28>
Review of Systems
All Other Systems: ROS reviewed and negative except as documented in HPI and ROS
Constitutional: Denies fever or fatigue
Respiratory: Reports no symptoms
Cardiac: Denies chest pain, diaphoresis, palpitations or syncope
ABD/GI: Denies nausea, vomiting or diarrhea
Musculoskeletal: Reports edema
Skin: Reports itching and other (scabs from prurigo nodularis and recent shingles infection)
Phy Exam
<Margareth Sharma DO, Resident - Last Filed: 03/17/24 14:28>
Physical Exam
Physical Exam:
.
General Physical Exam
General Presentation: well appearing
General age: appears stated age
General Skin: warm and dry
General Habitus: normal
General Mental: usual mental status
Cardiovascular Exam
Cardiovascular Exam: regular rate/rhythm, no gallop, no JVD and no murmur
Pulmonary Exam
Pulmonary Exam: lungs clear, no respiratory distress, no rales, no rhonchi and no wheezing
Gastrointestinal Exam
Gastrointestinal Exam: normal bowel sounds, non tender, soft, no organomegaly and non distended
Neurological Exam
Neurological Exam: alert, oriented x3 and no sensory deficits
Motor
Bilateral lower extremities: 3
Musculoskeletal Exam
Musculoskeletal Exam: neuro vasc intact (b/l posterior tibial and dorsalis pedis pulses with doppler. L dorsalis pedis pulse weaker)
Skin Exam
Skin Exam: redness and other (scabs, shingles rash on R flank)
Course
<Margareth Sharma DO, Resident - Last Filed: 03/17/24 14:28>
Orders/Labs/Results
Orders:
Orders
03/17/24 11:11
Venous Doppler Lwr Ext Left [US Periph Venous LOWER Ext LT] Urgent
Comment:
Reason For Exam: lower leg swelling & pain
03/17/24 11:20
Lower Ext Arterial & SMILEY US [US Periph Art LOWER Ext w SMILEY] Urgent
Comment:
Reason For Exam: left leg pain, decreased pulses
03/17/24 11:22
CR Knee - Left 1 Or 2 Views Urgent
Comment:
Reason For Exam: hx knee replacement, past fall
CR Knee - Right 1 Or 2 Views Urgent
Comment:
Reason For Exam: hx knee replacement, past fall
03/17/24 13:03
Complete Blood Count/No Diff Urgent
Comprehensive Metabolic Panel Urgent
PTT Urgent
Prothrombin Time Urgent
Abnormal Lab Results
03/17/24
13:03
RBC 3.84 L 10^6/uL
(4.20-5.40)
Hgb 10.8 L g/dL
(12.0-16.0)
Hct 35.5 L %
(37.0-47.0)
MCHC 30.4 L g/dL
(33.0-37.0)
RDW 15.1 H %
(11.5-14.5)
Carbon Dioxide 31 H mmol/L
(22-30)
BUN 20 H mg/dl
(7-17)
03/17/24 13:03
03/17/24 13:03
Vital Signs
Initial and Last Documented VS:
Initial Vital Signs
Temp Pulse Resp BP Pulse Ox
98.2 F 89 16 159/72 98
03/17/24 10:15 03/17/24 10:15 03/17/24 10:15 03/17/24 10:15 03/17/24 10:15
Last Documented Vital Signs
Temp Pulse Resp BP Pulse Ox
98.2 F 77 18 169/68 97
03/17/24 10:15 03/17/24 14:00 03/17/24 14:00 03/17/24 14:00 03/17/24 14:00
<Edmund June, DO - Last Filed: 03/17/24 13:56>
Orders/Labs/Results
Orders:
Orders
03/17/24 11:11
Venous Doppler Lwr Ext Left [US Perip Venous LOWER Ext LT] Urgent
Comment:
Reason For Exam: lower leg swelling & pain
03/17/24 11:20
Lower Ext Arterial & SMILEY US [US Periph Art LOWER Ext w SMILEY] Urgent
Comment:
Reason For Exam: left leg pain, decreased pulses
03/17/24 11:22
CR Knee - Left 1 Or 2 Views Urgent
Comment:
Reason For Exam: hx knee replacement, past fall
CR Knee - Right 1 Or 2 Views Urgent
Comment:
Reason For Exam: hx knee replacement, past fall
03/17/24 13:03
Complete Blood Count/No Diff Urgent
Comprehensive Metabolic Panel Urgent
PTT Urgent
Prothrombin Time Urgent
Abnormal Lab Results
03/17/24
13:03
RBC 3.84 L 10^6/uL
(4.20-5.40)
Hgb 10.8 L g/dL
(12.0-16.0)
Hct 35.5 L %
(37.0-47.0)
MCHC 30.4 L g/dL
(33.0-37.0)
RDW 15.1 H %
(11.5-14.5)
Carbon Dioxide 31 H mmol/L
(22-30)
BUN 20 H mg/dl
(7-17)
03/17/24 13:03
03/17/24 13:03
Vital Signs
Initial and Last Documented VS:
Initial Vital Signs
Temp Pulse Resp BP Pulse Ox
98.2 F 89 16 159/72 98
03/17/24 10:15 03/17/24 10:15 03/17/24 10:15 03/17/24 10:15 03/17/24 10:15
Last Documented Vital Signs
Temp Pulse Resp BP Pulse Ox
98.2 F 77 18 169/68 97
03/17/24 10:15 03/17/24 14:00 03/17/24 14:00 03/17/24 14:00 03/17/24 14:00
<Margareth Sharma DO, Resident - Last Filed: 03/17/24 14:28>
MDM/Problems Addressed
Differential Diagnosis Includes:
arterial dissection, dvt, dislocated knee
MDM/Problems Addressed:
Ms. Vani Lane is an 83yo female w pmh afib on pradaxa, HTN, DM, HLD, prurigo nodularis presenting with L lower leg pain and swelling.
DVT unlikely due to no evidence on doppler venous u/s.
Dislocated knee prosthesis unlikely because it is in a satisfactory position on XR.
Arterial dissection unlikely because of no findings on doppler arterial u/s
Chronic conditions affecting care: DM, HTN and Arrhythmia
Acute Exacerbation and/or Progression of Chronic Illness: DM and HTN
<Edmund June DO - Last Filed: 03/17/24 13:56>
*Radiology
Radiology exam reviewed: radiology read reviewed (Left lower extremity ultrasound no signs DVT, lower extremity arterial ultrasound no signs of stenosis.)
*Critical Care Note
Total Time (30-74mins, 75-104mins- exclusive of procedures): Not Applicable
<Edmund June DO - Last Filed: 03/17/24 13:56>
Patient Management
Discussion with other providers: Nanoelectronics Engineer (Discussed with Dr. Sosa, who reviewed ultrasound, and does not see need for vascular intervention)
Escalation/DeEscalation of care consider admission/obs:
Admit not indicated
ED Attending Note
<Margareth Sharma DO, Resident - Last Filed: 03/17/24 14:28>
-
Portions of this chart may have been created with voice recognition software.� Occasional wrong word or��sound alike� substitutions may have occurred due to the inherent limitations of voice recognition software.
Discharge Plan
Departure
Patient Disposition: Home (Routine Discharge)
Date of Disposition: 03/17/24
Time of Disposition: 13:49
Patient with high blood pressure during this ER visit?: Yes
Condition: Fair
Discharge Problem:
Acute leg pain, Osteoarthritis of left hip
Instructions: Osteoarthritis
Prescriptions:
No Action
metformin 500 MG tablet
500 mg PO BID@0800,1700
prednisone 1 MG tablet
5 mg PO DAILY
cholecalciferol (vitamin D3) 2,000 UNITS tablet
2,000 unit PO DAILY
dabigatran etexilate [Pradaxa] 150 MG capsule
150 mg PO BID
carvedilol 12.5 MG tablet
12.5 mg PO BID
amoxicillin 500 MG capsule
2,000 mg PO DAILY PRN (Reason: prior to dental procedures)
losartan 50 mg tablet
50 mg PO BID
atorvastatin 20 mg tablet
20 mg PO DAILY
amiodarone 200 mg tablet
200 mg PO DAILY
amlodipine 2.5 mg tablet
2.5 mg PO DAILY
duloxetine 60 mg capsule,delayed release(DR/EC)
60 mg PO DAILY
vitamin E 268 mg (400 unit) Capsule
180 mg PO DAILY
calcium citrate 200 mg (950 mg) Tablet
600 mg PO DAILY
Myrbetriq 50 mg tablet extended release 24 hr
50 mg PO DAILY
acetaminophen 325 mg Tablet
650 mg PO Q6HPRN PRN (Reason: mild pain/ fever>100.5F) Qty: 0 0RF
cephalexin 500 mg capsule
500 mg PO QID Qty: 28 0RF
valacyclovir 1 gram tablet
1,000 mg PO Q8H Qty: 21 0RF
Referrals:
Thomas Dill MD [Family Provider] -
Activity Restrictions/Additional Instructions:
Follow up with your orthopedic surgeon.
Please return if you develop any fevers or worsening symptoms.
Interventions
Interventions:
*Risk Screen - Suicide Last Done: 03/17/24 10:56
*General Assessment Last Done: 03/17/24 10:56
*Neglect/Abuse Screening Last Done: 03/17/24 10:56
ED- Fall Risk Assessment Last Done: 03/17/24 10:58
*ED COVID-19 Vaccine History Last Done: 03/17/24 10:56
ED-Musculoskeletal Assessment Last Done: 03/17/24 11:00
Discharge Date and Time
Print Language: KHMER
[2024-03-17 12:56] VITALS: BP 180/79
[2024-03-17 13:04] VITALS: BP 180/75
[2024-03-17 13:17] LABS: Hematocrit 35.5 % (37.0-47.0); Hemoglobin 10.8 g/dL (12.0-16.0); Mean Corp Hgb Conc. 30.4 g/dL (33.0-37.0); Mean Corpuscular Hgb 28.1 pg (27.0-31.0); Mean Corpuscular Volume 92.4 fL (81.0-99.0); Mean Platelet Volume 9.3 fL (7.4-10.4); Platelet Count 274 10^3/uL (130-400); Red Blood Cell Count 3.84 10^6/uL (4.20-5.40); Red Cell Dist. Width 15.1 % (11.5-14.5); White Blood Cell Count 6.9 10^3/uL (4.8-10.8)
[2024-03-17 13:27] LABS: ALT (SGPT) 23 U/L (0-35); AST (SGOT) 32 U/L (14-36); Albumin 3.9 g/dl (3.5-5.0); Alkaline Phosphatase 65 U/L (38-126); Blood Urea Nitrogen 20 mg/dl (7-17); Carbon Dioxide 31 mmol/L (22-30); Chloride 102 mmol/L (98-107); Estimated Creatinine Clearance 48 ml/min; Glucose 78 mg/dl (70-99); Sodium 140 mmol/L (135-145); Total Bilirubin 0.7 mg/dl (0.2-1.3); Total Protein 6.5 g/dl (6.3-8.2); eGFR > 60.00
[2024-03-17 13:32] LABS: INR 1.11; PT 14.1 Sec (11.4-14.6)
[2024-03-17 13:33] LABS: APTT 30.6 Sec (23.4-35.0)
[2024-03-17 14:00] VITALS: BP 169/68
== END 2024-03-17 14:53 | disposition home or self-care (01) ==
LOC: EMR 10:09
PROVIDERS: EMERGENCY PHYSICIAN Emergency Medicine; FAMILY PHYSICIAN Internal Medicine Geriatric Medicine
DX: M79.662 Pain in left lower leg (principal); M16.12 Unilateral primary osteoarthritis, left hip; R22.42 Localized swelling, mass and lump, left lower limb; E11.9 Type 2 diabetes mellitus without complications; E78.00 Pure hypercholesterolemia, unspecified; I10 Essential (primary) hypertension; I48.91 Unspecified atrial fibrillation; Z79.01 Long term (current) use of anticoagulants; Z82.3 Family history of stroke; Z83.3 Family history of diabetes mellitus; Z87.440 Personal history of urinary (tract) infections; Z90.49 Acquired absence of other specified parts of digestive tract; Z90.710 Acquired absence of both cervix and uterus; Z96.643 Presence of artificial hip joint, bilateral; Z96.653 Presence of artificial knee joint, bilateral
CPT/HCPCS: 99284; 73560; 80053; 85027; 85610; 85730; 93005; 93922; 93925; 93971

== ENCOUNTER 2024-04-10 07:45 | Emergency (ER) | payer OTHER, SELFPAY ==
[2024-04-10 07:49] VITALS: BP 134/65
[2024-04-10 07:58] VITALS: BP 147/55
[2024-04-10 08:00] VITALS: BP 141/50
--- NOTE | 2024-04-10 08:12 | ED.GENMED ---
History of Present Illness
General
Chief Complaint: Fall
Source: patient and family (Daughter)
Exam Limitations: none
Time Seen by Provider: 04/10/24 07:59
Nursing documentation reviewed up to this point in time: agreed with
History of Present Illness
History of Present Illness:
83-year-old female with a past medical history as documented notable for A-fib on Pradaxa who presents to the ER for evaluation after a fall. Patient was using bedside commode at home today and while she was getting off of it lost her balance and
fell over. She struck her head on the hardwood floor. She says she did not pass out. Her daughter says that they heard her fall and called for help and found her on the ground next to the commode. She had a 'goose egg' on the right occipital
scalp and was complaining of some right hip pain. Patient was able to get up with assistance and put weight on right hip despite reported pain. Was brought into the emergency room to be evaluated. Patient reports headache and some mild neck pain
since the fall although she admits she has arthritis pain in her neck and has chronic pain. She denies any new back pains. She denies any chest/rib pain, abdominal pain. She says that she has pain in her extremities all the time due to arthritis
and fibromyalgia; may be slightly worse in the right hip. Her left hip has severe arthritis and she is recommended for replacement; she has a chronic contracture of the left hip and this is baseline for her.
Past History
Past History
ED Past Medical History: Arrthythmia (Atrial fib), Cancer, HTN, Hypercholesterolemia, NIDDM, Other ('mrsa') and Other (Severe osteo arthritis, chronic ambulatory dysfunction, frequent falls, UTIs, chronic constipation, abd hernias)
ED Past Surgical History: Appendectomy, Gynecological (Hysterectomy) and Orthopedic
Social History
Tobacco: Non-smoker
Alcohol: None
Drug: None
Personal:
Living: with family (Resides with her daughter)
Employment: Retired
Family History
Family History: Diabetes and Other (Stroke)
Review of Systems
Review of Systems
All Other Systems: ROS reviewed and negative except as documented in HPI and ROS
Respiratory: Denies trouble breathing
Cardiac: Denies chest pain
ABD/GI: Denies abdominal pain or nausea
: Denies flank pain
Musculoskeletal: Reports joint pain and neck pain; Denies back pain
Neurological: Reports headache; Denies dizzy
Phy Exam
Physical Exam
Physical Exam:
General: Awake, alert, oriented x3, slightly hard of hearing; no acute distress
Head: Normocephalic, right occipital hematoma, no lacerations or abrasions to the scalp
Eyes: Conjunctiva normal
Throat: Airway intact, handling secretions
Neck: Trachea midline, no midline cervical spine tenderness
Back: No tenderness in the thoracic or lumbar spine; scoliosis; no signs of trauma to the back or flank
Lungs: Breathing comfortably with no signs of accessory muscle use or cyanosis
Heart: Regular rate, warm and well-perfused extremities; no chest wall/rib tenderness
Abd: Soft, non distended, nontender
Neuro: No gross deficits
Extremities: Patient has no reproducible tenderness in the upper extremities and is able to move all joints of the upper extremities through full range of motion; patient has some mild lateral right hip tenderness but does allow for full range of
motion of the right hip; left hip very stiff and she has a contracture of the left leg which is baseline
Scores
Heart Failure Risk
Heart Failure Risk Score: Not Applicable
Heart Score for Chest Pain Patients
STEMI patient?: Not applicable
Withdrawal Assessment of Alcohol
Withdrawal Assessment Completed?: Not applicable
Course
Orders/Labs/Results
Orders:
Orders
04/10/24 08:10
CT Cervical Spine W/o Iv Contr Urgent
Comment:
Reason For Exam: fall with R occipital headstrike
CT Head W/o Iv Contrast Urgent
Comment:
Reason For Exam: fall with R occipital headstrike
04/10/24 08:11
CR Hip - RT w/wo Pel 2-3 Vw* Urgent
Comment:
Reason For Exam: right hip pain s/p fall
Include a pelvis x-ray?: Yes
Vital Signs
Initial and Last Documented VS:
Initial Vital Signs
Temp Pulse Resp BP Pulse Ox
36.5 C 73 16 134/65 98
04/10/24 07:49 04/10/24 07:49 04/10/24 07:49 04/10/24 07:49 04/10/24 07:49
Last Documented Vital Signs
Temp Pulse Resp BP Pulse Ox
36.5 C 63 13 141/50 95
04/10/24 07:49 04/10/24 08:30 04/10/24 08:30 04/10/24 08:00 04/10/24 08:30
MDM/Problems Addressed
Differential Diagnosis Includes:
Hip pain: Contusion, fracture, dislocation
Headache: Scalp hematoma, subdural hemorrhage/intracranial hemorrhage, concussion
MDM/Problems Addressed:
83-year-old female presents with her daughter from home after mechanical ground-level fall with head strike; she is on Pradaxa. She has occipital hematoma complains mainly of headache and some right hip pain. She was however able to put weight on
the right hip. She complains of neck pain but this is a chronic issue, no other acute pains today. Will plan to check CT head and cervical spine. Check x-ray of the right hip and pelvis. Monitor closely reassess after the above.
CT head and cervical spine negative for any acute emergent pathology�only mild right occipital scalp contusion. X-ray of the hip shows degenerative changes left hip, no acute fracture right hip. Stable for discharge, daughter comfortable taking
patient home. Spoke about return precautions all questions answered.
Chronic conditions affecting care:
A-fib on Pradaxa complicates her fall
*Radiology
Radiology exam reviewed: radiology read reviewed
*Pulse Oximetry
Patient hypoxic: no
*Critical Care Note
Total Time (30-74mins, 75-104mins- exclusive of procedures): Not Applicable
Data Reviewed
Source: patient, records and family
Patient Management
Social determinants of health affecting care: Strong social support
ED Attending Note
-
Portions of this chart may have been created with voice recognition software.� Occasional wrong word or��sound alike� substitutions may have occurred due to the inherent limitations of voice recognition software.
Discharge Plan
Departure
Patient Disposition: Home (Routine Discharge)
Date of Disposition: 04/10/24
Time of Disposition: 09:20
Patient with high blood pressure during this ER visit?: No
Discharge Problem:
Contusion of scalp, Contusion of hip
Instructions: Contusion (DC)
Prescriptions:
No Action
metformin 500 MG tablet
500 mg PO BID@0800,1700
prednisone 1 MG tablet
5 mg PO DAILY
cholecalciferol (vitamin D3) 2,000 UNITS tablet
2,000 unit PO DAILY
dabigatran etexilate [Pradaxa] 150 MG capsule
150 mg PO BID
carvedilol 12.5 MG tablet
12.5 mg PO BID
amoxicillin 500 MG capsule
2,000 mg PO DAILY PRN (Reason: prior to dental procedures)
losartan 50 mg tablet
50 mg PO BID
atorvastatin 20 mg tablet
20 mg PO DAILY
amiodarone 200 mg tablet
200 mg PO DAILY
amlodipine 2.5 mg tablet
2.5 mg PO DAILY
duloxetine 60 mg capsule,delayed release(DR/EC)
60 mg PO DAILY
vitamin E 268 mg (400 unit) Capsule
180 mg PO DAILY
calcium citrate 200 mg (950 mg) Tablet
600 mg PO DAILY
Myrbetriq 50 mg tablet extended release 24 hr
50 mg PO DAILY
acetaminophen 325 mg Tablet
650 mg PO Q6HPRN PRN (Reason: mild pain/ fever>100.5F) Qty: 0 0RF
cephalexin 500 mg capsule
500 mg PO QID Qty: 28 0RF
valacyclovir 1 gram tablet
1,000 mg PO Q8H Qty: 21 0RF
Activity Restrictions/Additional Instructions:
Thank you for visiting the Emergency Department at [facility].
1. Please schedule a follow up appointment as directed. Call first thing tomorrow morning to make an appointment.
2. If indicated, please take your medications as instructed and indicated on discharge paperwork.
3. If any of your symptoms do not improve, or persist, or become more severe within 6-12 hours, please return to the emergency department for further care.
4. Please return to the emergency department if you develop a headache, neck pain/stiffness, fever greater than 100.4F, chest pain, shortness of breath, persistent nausea, vomiting, slurred speech, difficulty walking, numbness/tingling, weakness,
signs of infection or any other symptoms that are worrisome to you.
Please call [phone] if you have any questions.
Interventions
Interventions:
*Risk Screen - Suicide Last Done: 04/10/24 07:49
*General Assessment Last Done: 04/10/24 08:12
*Neglect/Abuse Screening Last Done: 04/10/24 07:49
*ED COVID-19 Vaccine History Last Done: 04/10/24 08:12
ED-Musculoskeletal Assessment Last Done: 04/10/24 08:12
ED- Neurological Assessment Last Done: 04/10/24 08:12
ED-Skin Assessment Last Done: 04/10/24 08:12
Discharge Date and Time
Print Language: TAMAZIGHT
== END 2024-04-10 09:25 | disposition home or self-care (01) ==
LOC: EMR 07:45
PROVIDERS: EMERGENCY PHYSICIAN Emergency Medicine; FAMILY PHYSICIAN Internal Medicine Geriatric Medicine
DX: S00.03XA Contusion of scalp, initial encounter (principal); S70.01XA Contusion of right hip, initial encounter; I48.91 Unspecified atrial fibrillation; W19.XXXA Unspecified fall, initial encounter; Z79.01 Long term (current) use of anticoagulants
CPT/HCPCS: 99284; 70450; 72125; 73502

== ENCOUNTER → 2024-04-24 08:26 | Outpatient (REF) | payer OTHER, SELFPAY | LOC: WOUND 08:26 | PROVIDERS: ATTENDING PHYSICIAN Surgery; FAMILY PHYSICIAN Internal Medicine Geriatric Medicine | DX: I87.312 Chronic venous hypertension (idiopathic) with ulcer of left lower extremity (principal); L97.322 Non-pressure chronic ulcer of left ankle with fat layer exposed; E11.9 Type 2 diabetes mellitus without complications; M35.3 Polymyalgia rheumatica; I48.0 Paroxysmal atrial fibrillation | CPT/HCPCS: 11042; 99203 ==

== ENCOUNTER → 2024-04-28 13:26 | Outpatient (REF) | payer OTHER, SELFPAY | LOC: RAD 13:26 | PROVIDERS: ATTENDING PHYSICIAN Nurse Practitioner Family; FAMILY PHYSICIAN Internal Medicine Geriatric Medicine | DX: M79.89 Other specified soft tissue disorders (principal); L97.919 Non-pressure chronic ulcer of unspecified part of right lower leg with unspecified severity; E11.9 Type 2 diabetes mellitus without complications | CPT/HCPCS: 93970 ==

== ENCOUNTER → 2024-04-29 09:36 | Outpatient (REF) | payer OTHER, SELFPAY | LOC: WOUND 09:36 | PROVIDERS: ATTENDING PHYSICIAN Surgery; FAMILY PHYSICIAN Internal Medicine Geriatric Medicine | DX: I87.312 Chronic venous hypertension (idiopathic) with ulcer of left lower extremity (principal); L97.322 Non-pressure chronic ulcer of left ankle with fat layer exposed; E11.9 Type 2 diabetes mellitus without complications; M35.3 Polymyalgia rheumatica; I48.0 Paroxysmal atrial fibrillation | CPT/HCPCS: 11042; 97597 ==

== ENCOUNTER → 2024-05-01 14:00 | Outpatient (REF) | payer OTHER, SELFPAY | LOC: WOUND 14:00 | PROVIDERS: ATTENDING PHYSICIAN Surgery; FAMILY PHYSICIAN Internal Medicine Geriatric Medicine | DX: I87.312 Chronic venous hypertension (idiopathic) with ulcer of left lower extremity (principal); L97.322 Non-pressure chronic ulcer of left ankle with fat layer exposed; E11.9 Type 2 diabetes mellitus without complications; M35.3 Polymyalgia rheumatica; I48.0 Paroxysmal atrial fibrillation | CPT/HCPCS: 29580 ==

== ENCOUNTER → 2024-05-06 09:44 | Outpatient (REF) | payer OTHER, SELFPAY | LOC: WOUND 09:44 | PROVIDERS: ATTENDING PHYSICIAN Surgery; FAMILY PHYSICIAN Internal Medicine Geriatric Medicine | DX: I87.312 Chronic venous hypertension (idiopathic) with ulcer of left lower extremity (principal); L97.322 Non-pressure chronic ulcer of left ankle with fat layer exposed; E11.9 Type 2 diabetes mellitus without complications; M35.3 Polymyalgia rheumatica; I48.0 Paroxysmal atrial fibrillation | CPT/HCPCS: 29581; 99213 ==

== ENCOUNTER → 2024-05-15 13:51 | Outpatient (REF) | payer OTHER, SELFPAY | LOC: WOUND 13:51 | PROVIDERS: ATTENDING PHYSICIAN Surgery; FAMILY PHYSICIAN Internal Medicine Geriatric Medicine | DX: I87.312 Chronic venous hypertension (idiopathic) with ulcer of left lower extremity (principal); E11.9 Type 2 diabetes mellitus without complications; L97.322 Non-pressure chronic ulcer of left ankle with fat layer exposed; M35.3 Polymyalgia rheumatica; I48.0 Paroxysmal atrial fibrillation | CPT/HCPCS: 29581; 99213 ==

== ENCOUNTER → 2024-05-22 11:05 | Outpatient (REF) | payer OTHER, SELFPAY | LOC: WOUND 11:05 | PROVIDERS: ATTENDING PHYSICIAN Surgery; FAMILY PHYSICIAN Internal Medicine Geriatric Medicine | DX: I87.313 Chronic venous hypertension (idiopathic) with ulcer of bilateral lower extremity (principal); M35.3 Polymyalgia rheumatica; L97.322 Non-pressure chronic ulcer of left ankle with fat layer exposed; L97.212 Non-pressure chronic ulcer of right calf with fat layer exposed; E11.9 Type 2 diabetes mellitus without complications; I48.0 Paroxysmal atrial fibrillation | CPT/HCPCS: 29581; 99213 ==

== ENCOUNTER → 2024-05-29 10:02 | Outpatient (REF) | payer OTHER, SELFPAY | LOC: WOUND 10:02 | PROVIDERS: ATTENDING PHYSICIAN Surgery; FAMILY PHYSICIAN Internal Medicine Geriatric Medicine | DX: I87.313 Chronic venous hypertension (idiopathic) with ulcer of bilateral lower extremity (principal); L97.322 Non-pressure chronic ulcer of left ankle with fat layer exposed | CPT/HCPCS: 29581; 99213 ==

== ENCOUNTER → 2024-06-04 13:06 | Outpatient (REF) | payer OTHER, SELFPAY | LOC: WOUND 13:06 | PROVIDERS: ATTENDING PHYSICIAN Surgery; FAMILY PHYSICIAN Internal Medicine Geriatric Medicine | DX: I87.313 Chronic venous hypertension (idiopathic) with ulcer of bilateral lower extremity (principal); L97.322 Non-pressure chronic ulcer of left ankle with fat layer exposed; L97.212 Non-pressure chronic ulcer of right calf with fat layer exposed; E11.9 Type 2 diabetes mellitus without complications; M35.3 Polymyalgia rheumatica; I48.0 Paroxysmal atrial fibrillation | CPT/HCPCS: 29581 ==

== ENCOUNTER → 2024-06-12 10:28 | Outpatient (REF) | payer OTHER, SELFPAY | LOC: WOUND 10:28 | PROVIDERS: ATTENDING PHYSICIAN Surgery; FAMILY PHYSICIAN Internal Medicine Geriatric Medicine | DX: I87.313 Chronic venous hypertension (idiopathic) with ulcer of bilateral lower extremity (principal); L97.322 Non-pressure chronic ulcer of left ankle with fat layer exposed; L97.212 Non-pressure chronic ulcer of right calf with fat layer exposed; E11.9 Type 2 diabetes mellitus without complications; M35.3 Polymyalgia rheumatica; I48.0 Paroxysmal atrial fibrillation | CPT/HCPCS: 99212 ==

== ENCOUNTER → 2024-07-18 10:31 | Outpatient (REF) | payer OTHER, SELFPAY | LOC: RST 10:31 | PROVIDERS: ATTENDING PHYSICIAN Internal Medicine Geriatric Medicine | DX: R13.10 Dysphagia, unspecified (principal) | CPT/HCPCS: 74230; 92611 ==

== ENCOUNTER → 2024-08-13 12:05 | Outpatient (REF) | payer OTHER, SELFPAY ==
[2024-08-13 13:49] LABS: % Basophils 0.3 % (0-2); % Eosinophils 1.1 % (0-6); % Immature Granulocytes 0.4 % (0-0.5); % Lymphocytes 9.5 % (20.5-51.1); % Monocytes 7.3 % (1.7-9.3); % Neutrophils 81.4 % (42.2-75.2); Absolute Eosinophils 0.1 10^3/uL (0-0.7); Absolute Lymphocytes 0.7 10^3/uL (1.2-3.4); Absolute Monocytes 0.5 10^3/uL (0.1-0.6); Absolute Neutrophils 5.9 10^3/uL (1.4-6.5); Hematocrit 33.8 % (37.0-47.0); Hemoglobin 9.8 g/dL (12.0-16.0); Mean Corpuscular Hgb 25.1 pg (27.0-31.0); Mean Corpuscular Volume 86.7 fL (81.0-99.0); Mean Platelet Volume 9.2 fL (7.4-10.4); Nucleated Red Blood Cells % 0 %; Platelet Count 344 10^3/uL (130-400); Red Cell Dist. Width 18.3 % (11.5-14.5); White Blood Cell Count 7.3 10^3/uL (4.8-10.8)
[2024-08-13 13:58] LABS: Erythrocyte Sed Rate 39 mm/hour (0-20)
[2024-08-13 14:20] LABS: Glycohemoglobin (HgbA1c) 6.3 % (4.0-5.6)
[2024-08-13 15:10] LABS: Urine Albumin 1+ (Neg - Trace); Urine Bilirubin Negative (Negative); Urine Character Slightly Cloudy (Clear); Urine Color Yellow; Urine Glucose 2+ (Negative); Urine Ketone Negative (Negative); Urine Leukocyte 2+ (Negative); Urine Nitrite Negative (Negative); Urine Occult Blood 2+ (Negative); Urine Specific Gravity 1.015 (<1.030); Urine Urobilinogen 1+ (Neg - 1+)
[2024-08-13 15:30] LABS: Urine Bacteria Many (Negative); Urine Red Blood Cell 0-2 /HPF (0-2)
[2024-08-13 15:31] LABS: Urine Squamous Cell 0-2 /LPF (Few)
[2024-08-13 15:33] LABS: ALT (SGPT) 15 U/L (0-35); AST (SGOT) 23 U/L (14-36); Albumin 4.1 g/dl (3.5-5.0); Alkaline Phosphatase 85 U/L (38-126); Blood Urea Nitrogen 19 mg/dl (7-17); Calcium 9.5 mg/dl (8.4-10.2); Carbon Dioxide 29 mmol/L (22-30); Chloride 102 mmol/L (98-107); Glucose 113 mg/dl (70-99); HDL Cholesterol 84 mg/dl; LDL Cholesterol, Calculated 58 mg/dl; Potassium 4.4 mmol/L (3.5-5.1); Sodium 141 mmol/L (135-145); Total Bilirubin 0.7 mg/dl (0.2-1.3); Total Cholesterol 160 mg/dl (50-199); Total Protein 6.7 g/dl (6.3-8.2); Triglyceride 92 mg/dl (10-149); Very Low Density Lipoprotein 18 mg/dl (0-30); eGFR > 60.00
[2024-08-13 16:17] LABS: Vitamin D, 25-OH*** 47.3 ng/mL (30-80)
[2024-08-13 16:31] LABS: TSH 0.78 uIU/ml (0.47-4.68)
== END ==
LOC: REG 12:05
PROVIDERS: ATTENDING PHYSICIAN Internal Medicine Rheumatology; FAMILY PHYSICIAN Internal Medicine Geriatric Medicine
DX: E11.69 Type 2 diabetes mellitus with other specified complication (principal); E55.9 Vitamin D deficiency, unspecified; M15.0 Primary generalized (osteo)arthritis; M25.50 Pain in unspecified joint; M25.552 Pain in left hip; M35.3 Polymyalgia rheumatica; M81.0 Age-related osteoporosis without current pathological fracture; Z79.899 Other long term (current) drug therapy; I10 Essential (primary) hypertension; I48.0 Paroxysmal atrial fibrillation; E11.9 Type 2 diabetes mellitus without complications; E78.2 Mixed hyperlipidemia; I35.8 Other nonrheumatic aortic valve disorders; R06.09 Other forms of dyspnea; R26.2 Difficulty in walking, not elsewhere classified; N39.0 Urinary tract infection, site not specified; M16.12 Unilateral primary osteoarthritis, left hip; Z13.89 Encounter for screening for other disorder
CPT/HCPCS: 36415; 80053; 80061; 81003; 81015; 82306; 83036; 84443; 85025; 85652; 86140; 87077; 87086; 87186

== ENCOUNTER → 2024-08-13 14:59 | Outpatient (REF) | payer OTHER, SELFPAY | LOC: WDC 14:59 | PROVIDERS: ATTENDING PHYSICIAN Internal Medicine Geriatric Medicine | DX: Z12.31 Encounter for screening mammogram for malignant neoplasm of breast (principal) | CPT/HCPCS: 77063; 77067 ==

== ENCOUNTER → 2024-08-20 16:11 | Outpatient (REF) | payer OTHER, SELFPAY ==
[2024-08-20 17:37] LABS: Hemoglobin 9.2 g/dL (12.0-16.0); Mean Corp Hgb Conc. 28.8 g/dL (33.0-37.0); Mean Corpuscular Hgb 24.7 pg (27.0-31.0); Mean Corpuscular Volume 85.8 fL (81.0-99.0); Mean Platelet Volume 9.2 fL (7.4-10.4); Platelet Count 305 10^3/uL (130-400); Red Blood Cell Count 3.73 10^6/uL (4.20-5.40); Red Cell Dist. Width 18.3 % (11.5-14.5); White Blood Cell Count 7.2 10^3/uL (4.8-10.8)
[2024-08-20 18:35] LABS: % Basophils 0.3 % (0-2); % Eosinophils 0.4 % (0-6); % Immature Granulocytes 0.3 % (0-0.5); % Monocytes 5.8 % (1.7-9.3); % Neutrophils 85.2 % (42.2-75.2); Absolute Lymphocytes 0.6 10^3/uL (1.2-3.4); Absolute Monocytes 0.4 10^3/uL (0.1-0.6); Absolute Neutrophils 6.2 10^3/uL (1.4-6.5); Anisocytosis 1+; Hypochromasia 2+; Normal RBC Morphology No; Nucleated Red Blood Cells % 0 %; Stomatocytes 1+; Tear Drop Red Blood Cells 1+
[2024-08-20 18:37] LABS: Schistocytes Occasional
== END ==
LOC: RAD 16:11
PROVIDERS: ATTENDING PHYSICIAN Internal Medicine Geriatric Medicine
DX: M25.552 Pain in left hip (principal); R79.89 Other specified abnormal findings of blood chemistry
CPT/HCPCS: 36415; 73502; 85025

== ENCOUNTER → 2024-09-25 11:44 | Outpatient (REF) | payer OTHER, SELFPAY | LOC: RAD 11:44 | PROVIDERS: ATTENDING PHYSICIAN Internal Medicine Geriatric Medicine | DX: R33.9 Retention of urine, unspecified (principal); R35.0 Frequency of micturition | CPT/HCPCS: 76770 ==

== ENCOUNTER → 2024-11-25 13:31 | Outpatient (REF) | payer OTHER, SELFPAY | LOC: RAD 13:31 | PROVIDERS: ATTENDING PHYSICIAN Internal Medicine Rheumatology; FAMILY PHYSICIAN Internal Medicine Geriatric Medicine | DX: Z13.820 Encounter for screening for osteoporosis (principal) | CPT/HCPCS: 77080; 77081 ==

== ENCOUNTER → 2024-12-12 12:15 | Outpatient (REF) | payer OTHER, SELFPAY ==
[2024-12-12 13:01] LABS: % Basophils 0.3 % (0-2); % Eosinophils 1.6 % (0-6); % Immature Granulocytes 0.3 % (0-0.5); % Lymphocytes 5.2 % (20.5-51.1); % Monocytes 4.9 % (1.7-9.3); % Neutrophils 87.7 % (42.2-75.2); Absolute Eosinophils 0.2 10^3/uL (0-0.7); Absolute Lymphocytes 0.5 10^3/uL (1.2-3.4); Absolute Monocytes 0.5 10^3/uL (0.1-0.6); Absolute Neutrophils 8.2 10^3/uL (1.4-6.5); Hemoglobin 10.3 g/dL (12.0-16.0); Mean Corp Hgb Conc. 29.4 g/dL (33.0-37.0); Mean Corpuscular Hgb 24.9 pg (27.0-31.0); Mean Corpuscular Volume 84.5 fL (81.0-99.0); Mean Platelet Volume 9.1 fL (7.4-10.4); Nucleated Red Blood Cells % 0 %; Platelet Count 328 10^3/uL (130-400); Red Blood Cell Count 4.14 10^6/uL (4.20-5.40); Red Cell Dist. Width 16.8 % (11.5-14.5); White Blood Cell Count 9.3 10^3/uL (4.8-10.8)
[2024-12-12 13:20] LABS: Urine Albumin 1+ (Neg - Trace); Urine Bilirubin Negative (Negative); Urine Character Slightly Cloudy (Clear); Urine Color Yellow; Urine Glucose Negative (Negative); Urine Ketone Negative (Negative); Urine Leukocyte 3+ (Negative); Urine Nitrite Negative (Negative); Urine Occult Blood 2+ (Negative); Urine Specific Gravity 1.015 (<1.030); Urine Urobilinogen Negative (Neg - 1+)
[2024-12-12 13:55] LABS: Urine Mucus Few; Urine Squamous Cell >30 /LPF (Few)
[2024-12-12 13:56] LABS: Urine Hyaline Cast 0-2 /LPF (0-2)
[2024-12-12 13:57] LABS: Urine Bacteria Moderate (Negative); Urine White Cell 30-40 /HPF (0-5)
[2024-12-12 14:15] LABS: HDL Cholesterol 74 mg/dl; Iron 44 ug/dl (37-170); LDL Cholesterol, Calculated 75 mg/dl; Total Cholesterol 163 mg/dl (50-199); Triglyceride 71 mg/dl (10-149); Very Low Density Lipoprotein 14 mg/dl (0-30)
[2024-12-12 14:26] LABS: Percent Saturation 10 % (20-50); Total Iron Binding Capacity 417 ug/dl (265-497)
[2024-12-12 14:33] LABS: Vitamin D, 25-OH*** 48.4 ng/mL (30-80)
[2024-12-12 14:46] LABS: TSH 0.87 uIU/ml (0.47-4.68)
[2024-12-12 14:51] LABS: Ferritin 14.8 ng/ml (11.1-264.0)
[2024-12-12 15:22] LABS: Vitamin B12 757 pg/ml (239-931)
== END ==
LOC: REG 12:15
PROVIDERS: ATTENDING PHYSICIAN Internal Medicine Cardiovascular Disease; FAMILY PHYSICIAN Internal Medicine Geriatric Medicine
DX: E78.00 Pure hypercholesterolemia, unspecified (principal); E11.9 Type 2 diabetes mellitus without complications; E78.2 Mixed hyperlipidemia; R06.09 Other forms of dyspnea; Z79.899 Other long term (current) drug therapy
CPT/HCPCS: 36415; 80061; 81003; 81015; 82306; 82607; 82728; 82746; 83540; 83550; 84443; 85025

== ENCOUNTER → 2025-01-16 16:06 | Outpatient (REF) | payer OTHER, SELFPAY ==
[2025-01-16 17:15] LABS: Hematocrit 37.3 % (37.0-47.0); Hemoglobin 11.1 g/dL (12.0-16.0); Mean Corp Hgb Conc. 29.8 g/dL (33.0-37.0); Mean Corpuscular Volume 88.6 fL (81.0-99.0); Nucleated Red Blood Cells % 0 %; Platelet Count 285 10^3/uL (130-400); Red Cell Dist. Width 20.4 % (11.5-14.5); Reticulocyte Count 1.8 % (0.4-2.8)
[2025-01-16 17:25] LABS: Anisocytosis 1+; Hypochromasia Slight; Microcytosis Slight; Normal RBC Morphology No
[2025-01-16 17:35] LABS: Iron 272 ug/dl (37-170)
[2025-01-16 17:44] LABS: Total Iron Binding Capacity 369 ug/dl (265-497)
[2025-01-16 18:11] LABS: Ferritin 16.3 ng/ml (11.1-264.0)
== END ==
LOC: REG 16:06
PROVIDERS: ATTENDING PHYSICIAN Internal Medicine Hematology & Oncology; FAMILY PHYSICIAN Internal Medicine Geriatric Medicine
DX: D50.9 Iron deficiency anemia, unspecified (principal)
CPT/HCPCS: 36415; 82728; 83540; 83550; 85025; 85045

== ENCOUNTER 2025-01-28 08:11 | Inpatient (IN) | payer OTHER, SELFPAY ==
[2024-12-12 11:07] LABS: Hematocrit 33.3 % (37.0-47.0); Hemoglobin 9.9 g/dL (12.0-16.0); Mean Corp Hgb Conc. 29.7 g/dL (33.0-37.0); Mean Corpuscular Volume 83.3 fL (81.0-99.0); Platelet Count 318 10^3/uL (130-400); Red Cell Dist. Width 16.9 % (11.5-14.5)
[2024-12-12 11:34] LABS: ALT (SGPT) 17 U/L (0-35); AST (SGOT) 21 U/L (14-36); Albumin 3.9 g/dl (3.5-5.0); Alkaline Phosphatase 79 U/L (38-126); Blood Urea Nitrogen 30 mg/dl (7-17); Calcium 9.1 mg/dl (8.4-10.2); Carbon Dioxide 29 mmol/L (22-30); Chloride 103 mmol/L (98-107); Glucose 108 mg/dl (70-99); Potassium 4.3 mmol/L (3.5-5.1); Sodium 138 mmol/L (135-145); Total Protein 6.8 g/dl (6.3-8.2); eGFR > 60.00
[2024-12-12 12:25] LABS: Glycohemoglobin (HgbA1c) 6.3 % (4.0-5.6)
--- NOTE | 2024-12-17 12:54 | CM ---
CM spoke with patient and daughter via live telephone. Patient's daughter confirmed demographics. Patient lives with daughter and extended family. Patient does not have a history of VN. Patient has been to [facility]. Patient is active with her PCP.
Patient will use [facility] in [place].
Patient's daughter will make an outpatient PT appointment with [facility]. CM will continue to follow for needs.
CM will remain available pre-operatively.
PLAN: HOME WITH OUTPATIENT pt
--- NOTE | 2025-01-26 13:11 | PTCARENOTE ---
Addendum entered by France Chavarria RN 01/26/25 13:27:
Hiral in office made aware.
Original Note:
Spoke to daughter to update/complete presurgical interview. See documentation. Pt had a fall on 01/22/25, she did hit her head, pradaxa was on hold so she did not seek treatment per daughter. She has prurigo nodularis and tends to pick at her
skin. She has a few small open areas at this time, one on left thigh slightly smaller then a dime, feels it's improved. She also has sacral irritation, but no open area. Will make PA seeing pt tomorrow aware.
--- NOTE | 2025-01-27 12:22 | HPS.HSE ---
Family Physician
-
Family Physician: Thomas Dill
Chief Complaint
-
Advanced primary osteoarthritis of the left hip.
History of Present Illness
The patient is an 84-year-old female presenting today for advanced primary osteoarthritis of the left hip. The patient previously underwent remote right total hip arthroplasty and bilateral total knee arthroplasties at an outside facility.
She presents to [facility] today with complaints of significant left hip pain associated with her osteoarthritis. She notes that her current left hip pain is greatly interfering with her activities of daily living and is
overall impacting her quality of life. She has tried and failed multiple conservative treatment measures in the past for her left hip pain. These conservative treatment measures include activity modification, self-directed therapeutic exercises,
attempted weight loss, medical management with Tylenol, Duloxetine, Gabapentin, Robaxin, and Tramadol as needed, and the application of ice and/or heat. Recent x-ray findings of the left hip demonstrated 100% [id number] osteoarthritis. She was
determined to be in need of a left total hip arthroplasty. She denies any current complaints today, such as chest pain, shortness of breath, palpitations, nausea, vomiting, diarrhea, lightheadedness, dizziness, cough, sore throat, or fever.
Medical History
Past Medical History
Past Medical History: Reports Other
Additional Past Medical History:
1. Osteoarthritis, status post remote right total hip arthroplasty and bilateral total knee arthroplasties at an outside facility.
2. Hypertension.
3. Hypercholesterolemia.
4. 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
5. Paroxysmal atrial fibrillation, status post cardioversion 2019; pharmacological therapy with Carvedilol and Amiodarone, previous oral anticoagulation with Pradaxa.
6. Peripheral vascular disease.
7. Chronic dyspnea on exertion.
8. Dke-zlphpnv-wpzhhwznr diabetes, A1c 6.3.
9. GERD.
10. Colon polyps.
11. Irritable bowel syndrome with constipation.
12. Cholelithiasis, asymptomatic.
13. Hemorrhoids with GI bleed 10/2024.
14. Migraines associated with cervical degenerative disc disease.
15. Vertigo.
16. Essential tremor.
17. Ambulatory dysfunction with frequent falls.
18. Polymyalgia rheumatica.
19. Peripheral neuropathy.
20. Reflex Sympathetic Dystrophy of right upper extremity.
21. Multilevel degenerative disc disease.
22. Left-sided breast cancer, 2008, status post left lumpectomy, lymph node excision, and radiation.
23. Overactive bladder.
24. History of recurrent UTIs.
25. Iron deficiency anemia due to poor dietary intake, on oral supplementation.
26. Chronic right-sided peripheral vision loss.
27. Insomnia.
28. Prurigo nodularis.
29. Osteoporosis.
30. MRSA of left lower extremity 2017; at least 2 negative swabs since diagnosis.
31. Poor historian.
Past Surgical History: Reports Other
Additional Past Surgical History:
1. Left total knee arthroplasty at an outside facility.
2. Right total knee arthroplasty at an outside facility.
3. Right total hip arthroplasty at an outside facility.
4. Open reduction, internal fixation of left ankle.
5. Open reduction, internal fixation of right wrist.
6. Left lumpectomy with lymph node excision.
7. Bilateral tubal ligation.
8. Vaginal hysterectomy.
9. D&C x3.
10. Appendectomy.
11. Inguinal hernia repair.
12. Vaginal sling.
13. Cardioversion.
14. Right corneal transplant.
15. Bilateral cataract extraction.
16. Colonoscopy x2.
Social History
Tobacco: Non-smoker
Alcohol: None
Living: With Family (The patient lives in a two-story home with her daughter, grandson, and great granddaughter.)
Family History
Family History: Not pertinent
Allergies / Home Medications
Allergy/Medication List:
HOME MEDICATIONS:
1. Acetaminophen 1300 mg p.o. every 12 hours as needed.
2. Amiodarone 200 mg p.o. daily.
3. Amlodipine 2.5 mg p.o. at bedtime.
4. Atorvastatin 20 mg p.o. daily.
5. Barrier cream 1 application topical daily as needed.
6. Caltrate with vitamin D 1 tablet p.o. daily.
7. Carvedilol 6.25 mg p.o. twice a day.
8. Cholecalciferol 25 mcg p.o. daily.
9. Duloxetine 40 mg p.o. twice a day.
10. Gabapentin 300 mg p.o. daily.
11. Melatonin 10 mg p.o. at bedtime.
12. Metformin 500 mg p.o. twice a day.
13. Robaxin 500 mg p.o. twice a day as needed.
14. Multivitamin 1 tablet p.o. daily.
15. Triple antibiotic ointment 1 application topical daily as needed.
16. Prednisone 4 mg p.o. daily.
17. Senna 17.2 mg p.o. at bedtime.
18. Tramadol 50 mg p.o. every 8 hours as needed.
19. Gemtesa 75 mg p.o. daily.
20. Bisacodyl 5 mg p.o. at bedtime.
21. Pradaxa 150 mg p.o. twice a day.
22. Ferrous sulfate 325 mg p.o. daily.
ALLERGIES and ADVERSE DRUG REACTIONS: Codeine. Moxifloxacin. Quinolones. Myrbetriq. Adhesive tape.
Review of Systems
-
A 12 point ROS was completed and negative except as noted: Yes
Physical Exam
Vital Signs
Blood pressure 122/86. Heart rate 85. Respirations 18. Pulse ox 100% on room air.
Height 4 feet. Weight 63.1 kg. BMI 42.5.
Physical Exam
General: Well Developed, No Apparent Distress and Conversant
HEENT: NormoCephalic, Moist mucous membranes, Atraumatic, PERRLA and Other (Chronic right sided peripheral vision loss. )
Respiratory: Clear
Cardiac: Regular Rhythm and Murmur
GI: Soft, Non Tender and Non Distended
Musculoskeletal: Other (Right hip: 0 internal rotation, 0 external rotation. Severe pain upon passive. Left hip: 5 internal rotation, 5 external rotation. No pain upon passive. 1-inch shorter than right. Left atrophy in quadriceps. Several small,
scabbed wounds noted on patient's upper thigh, likely from skin picking.)
Skin: Warm and Dry
Neuro: AO x 3, Cranial Nerves Intact and Other (Small bruise on posterior head, non-tender to palpation. )
Laboratory Results
-
12/12/24 10:44
12/12/24 10:43
Laboratory Results
Total Bilirubin 0.6 mg/dl (0.2-1.3) 12/12/24 10:43
AST 21 U/L (14-36) 12/12/24 10:43
ALT 17 U/L (0-35) 12/12/24 10:43
Alkaline Phosphatase 79 U/L (38-126) 12/12/24 10:43
MRSA screen negative.
DIAGNOSTIC STUDIES as of 01/27/2025: White blood cell count 6.5. Hemoglobin 10.5. Platelet count 246,000. Type and screen A positive.
EKG provided by Cardiology.
Echocardiogram 03/12/2024: Ejection fraction is 55-60%. No significant valvular disease. Compared to the prior echo of July 2020, there is no significant change.
Impression/Plan
-
CLEARANCES:
1. Primary medical, Dr. Thomas Dill, pending.
Primary medical phone number: [phone].
2. Cardiology, Dr. Terrance Stuart, cleared.
3. Hematology, Dr. Sonya Song, cleared with recommendations.
4. Dental waived.
IMPRESSION/PLAN:
1. Advanced primary osteoarthritis of the left hip in need of a left total hip arthroplasty by Dr. Tray Elizondo on 01/28/2025. The benefits and risks of the procedure have been explained to the patient. The patient understands these risks and
wishes to proceed.
2. DVT prophylaxis: Pradaxa 75 mg p.o. twice a day for 1 month with bilateral venous compression devices. The patient was previously on this at 150 mg p.o. twice a day for atrial fibrillation; however, it was stopped in the setting of hemorrhoidal
bleeding and recurrent epistaxis in October 2024. She denies any recent abnormal bleeding. We will utilize this medication at the lowest dose possible. Continuation of Pradaxa after 1 month should be discussed with her primary care physician and
service desk lead. Plasma flow devices have been purchased for use in the outpatient setting upon discharge.
3. Pain management: We will use Tramadol as needed for moderate to severe post-operative pain. Oxycodone will be considered should Tramadol be ineffective.
4. Paroxysmal atrial fibrillation: The patient will be monitored on telemetry post-operatively. She will continue her home Amiodarone and Carvedilol without interruption.
5. Ambulatory dysfunction with frequent falls: Her last fall occurred on 01/22/2025 for which she did not seek treatment. She is able to recall the events of the fall. She is noted to have a small bruise on her posterior head without open
lacerations. She is neurologically intact today. Her most recent fall was discussed with her primary care physician who will decide whether further imaging/treatment is necessary prior to surgery. The patient will be placed on fall precautions
post-operatively. She will work with PT and OT as able.
6. Iron deficiency anemia: The patient was advised to continue her oral iron supplement pre-operatively. IV iron will be considered during admission. Her hemoglobin will be monitored closely.
7. Post-operative bowel regimen: The patient will be started on Colace, Senokot, and Milk of Magnesia post-procedure, regardless of oral intake. Frequent mobility, adequate hydration, and the minimization of opioids were also discussed
pre-operatively.
Patient's preferred phone number: [phone]
Patient's contact (Sheryl Lauren - Daughter): [phone] (H); [phone] (C).
[2025-01-27 13:28] LABS: Hematocrit 34.8 % (37.0-47.0); Hemoglobin 10.5 g/dL (12.0-16.0); Mean Corp Hgb Conc. 30.2 g/dL (33.0-37.0); Mean Corpuscular Volume 91.6 fL (81.0-99.0); Platelet Count 246 10^3/uL (130-400); Red Cell Dist. Width 21.2 % (11.5-14.5)
[2025-01-27 13:32] VITALS: BMI 42.5
[2025-01-28] VITALS (20 sets, daily range): BP systolic 100–189; BP diastolic 39–83; BMI 42.5
[2025-01-28 08:59] LABS: Glucose - Point of Care 111 mg/dl (70-99)
[2025-01-28] MEDS: NORMOSOL-R/PLASMALYTE-A 1000 IV ×2 (09:43→18:05)
[2025-01-28] MEDS: CELEBREX 200 MG PO (09:45)
[2025-01-28] MEDS: TYLENOL 650 MG PO ×2 (09:45→18:21)
--- NOTE | 2025-01-28 12:48 | W.PN.UPDATE ---
Update Note
Progress Note Update
L hip OA s/p L JAMES w/ Dr Elizondo 01/28/25
- s/p remote R JAMES and b/l TKA at outside facility
DVT prophylaxis - Pradaxa 75 mg PO BID x1 month and b/l venous foot pumps
- Given recent fall, will check head CT FIRST b/f restarting Pradaxa. Of note, pt neurologically intact and can recall details of fall. Denies LOC
- Plasma flow devices purchased for outpatient use upon d/c
HTN - + parameters - monitor BP
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
PAF, status post CV 2019; pharmacological therapy with Carvedilol and Amiodarone, previous oral anticoagulation with Pradaxa
- Monitor on tele
- Continue BB and Amiodarone
- Pradaxa as stated above
Chronic SANCHEZ - monitor O2
- IS
NIDDM, A1c 6.3 - monitor BS
- Diabetic, carb controlled diet
- Resume Metformin BID
- Add SSI AC, low dose Lantus HS to accommodate for potential BS elevations d/t surgical stress, IV steroids in OR
- Pt requesting Prednisone taper for pain; will assess initial BS readings FIRST before starting
- Would benefit from Cefadroxil upon d/c
GERD - add Pepcid HS
IBS with constipation - add MOM HS to bowel regimen of Colace and Senna
- Adequate hydration, early mobility as tolerated, and minimizing opioids discussed pre-op
Hemorrhoids with GI bleed 10/2024 - minimize NSAIDs
- Of note, no recent bleeding reported
Ambulatory dysfunction with frequent falls - on fall precautions
- Head CT d/t recent fall ordered
Peripheral neuropathy - continue Gabapentin, Duloxetine
Iron deficiency anemia due to poor dietary intake, on oral supplementation - hgb in AM
- Continue PO iron
Hypercholesterolemia
PVD
Colon polyps
Cholelithiasis, asymptomatic
Migraines associated with cervical degenerative disc disease
Vertigo
Essential tremor
Polymyalgia rheumatica
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
Multilevel degenerative disc disease
Left-sided breast cancer, 2008, status post left lumpectomy, lymph node excision, and radiation
Overactive bladder
History of recurrent UTIs
Chronic right-sided peripheral vision loss
Insomnia
Prurigo nodularis
Osteoporosis
MRSA of left lower extremity 2016; at least 2 negative swabs since diagnosis
Poor historian
[2025-01-28 13:00] LABS: Glucose - Point of Care 127 mg/dl (70-99)
[2025-01-28 15:43] LABS: Glucose - Point of Care 131 mg/dl (70-99)
--- NOTE | 2025-01-28 16:10 | PTCARENOTE ---
PTs BP 179/75 - denies pain. notified dr vu - no new orders at this time. instructed to 'observe'
[2025-01-28] MEDS: ULTRAM 50 MG PO (16:26)
[2025-01-28 17:17] LABS: Glucose - Point of Care 151 mg/dl (70-99)
[2025-01-28] MEDS: DILAUDID 0.5 MG IV (18:06)
[2025-01-28] MEDS: GLUCOPHAGE 500 MG PO (18:17)
[2025-01-28] MEDS: VITAMIN D3 (cholecalciferol) 25 MCG PO (18:17)
[2025-01-28] MEDS: FEOSOL 325 MG PO (18:18)
[2025-01-28] MEDS: NOVOLOG FLEXPEN-MODERATE RESISTANCE 1 UNITS SC (18:22)
--- NOTE | 2025-01-28 19:53 | PTCARENOTE ---
Pt arrived from PACU at aprox 1645. Admission and assessment done. BP elevated. Pain medication given. SR on monitor. Left hip dressing with small amount of drainage. Daughter in room helping pt to order dinner. Instructed pt to ring for assistance.
[2025-01-28] MEDS: COLACE 100 MG PO (19:59)
[2025-01-28] MEDS: BACTROBAN 2% OINTMENT 1 APPLIC NASAL (19:59)
[2025-01-28] MEDS: SENOKOT 17.2 MG PO (19:59)
[2025-01-28] MEDS: NEURONTIN 300 MG PO (20:00)
[2025-01-28] MEDS: COREG 6.25 MG PO (20:00)
[2025-01-28] MEDS: METHOCARBAMOL 500 MG PO (20:01)
[2025-01-28] MEDS: CYMBALTA DELAYED RELEASE 30 MG PO (20:01)
[2025-01-28] MEDS: PRADAXA 75 MG PO (20:01)
[2025-01-28 21:21] LABS: Glucose - Point of Care 127 mg/dl (70-99)
[2025-01-28] MEDS: MILK OF MAGNESIA 30 ML PO (22:03)
[2025-01-28] MEDS: ANCEF 5 IV (22:03)
[2025-01-28] MEDS: LANTUS 0.05 UNITS SC (22:04)
[2025-01-28] MEDS: PEPCID 20 MG PO (22:04)
[2025-01-28] MEDS: NORVASC 2.5 MG PO (22:06)
[2025-01-28] MEDS: MELATONIN 10 MG PO (22:06)
[2025-01-29] VITALS (9 sets, daily range): BP systolic 103–154; BP diastolic 46–65; PULSE 67–68; O2SAT 97
[2025-01-29] MEDS: TYLENOL 650 MG PO ×7 (00:01→23:05)
[2025-01-29] MEDS: DILAUDID 0.5 MG IV ×2 (00:01→22:58)
[2025-01-29] MEDS: ULTRAM 50 MG PO (03:01)
[2025-01-29 06:18] LABS: Hematocrit 31.3 % (37.0-47.0); Hemoglobin 9.6 g/dL (12.0-16.0)
[2025-01-29] MEDS: METHOCARBAMOL 500 MG PO (06:36)
[2025-01-29 07:24] LABS: Glucose - Point of Care 134 mg/dl (70-99)
[2025-01-29] MEDS: SENOKOT 17.2 MG PO ×2 (08:16→20:45)
[2025-01-29] MEDS: NEURONTIN 300 MG PO ×2 (08:16→20:45)
[2025-01-29] MEDS: NOVOLOG FLEXPEN-MODERATE RESISTANCE SC ×3 (08:16→17:35)
[2025-01-29] MEDS: COREG 6.25 MG PO ×2 (08:17→20:45)
[2025-01-29] MEDS: PACERONE 200 MG PO (08:17)
[2025-01-29] MEDS: COLACE 100 MG PO ×2 (08:17→20:45)
[2025-01-29] MEDS: FEOSOL 325 MG PO (08:17)
[2025-01-29] MEDS: DELTASONE 20 MG PO (08:30)
[2025-01-29] MEDS: GLUCOPHAGE 500 MG PO ×2 (08:30→17:34)
[2025-01-29] MEDS: PRADAXA 75 MG PO ×2 (08:30→20:45)
[2025-01-29] MEDS: CYMBALTA DELAYED RELEASE 30 MG PO ×2 (08:30→20:45)
[2025-01-29] MEDS: VITAMIN D3 (cholecalciferol) 25 MCG PO (08:31)
[2025-01-29] MEDS: LIPITOR 20 MG PO (08:31)
[2025-01-29] MEDS: NON-FORMULARY ITEM 75 MG PO (08:33)
[2025-01-29] MEDS: BACTROBAN 2% OINTMENT 1 APPLIC NASAL ×2 (08:34→20:45)
--- NOTE | 2025-01-29 09:52 | CM ---
Addendum entered by Kenzie Meek RN 01/29/25 14:48:
CM updated patient and daughter at bedside with insurance delays.
Addendum entered by Kenzie Meek RN 01/29/25 14:05:
JAMAR sent authorization request to [employer] at fax [phone]
Addendum entered by Kenzie Meek RN 01/29/25 13:42:
Patient has been accepted by [facility].
Addendum entered by Kenzie Meek RN 01/29/25 12:30:
CM spoke with daughter who stated that she works at [facility] and would like that facility to be considered. Patient's daughter is also agreeable to [facility] if needed. CM will await final decision on rehab. CM sent referral via [facility]
Port to [facility].
PLAN: SNF
Addendum entered by Kenzie Meek RN 01/29/25 10:59:
CM was advised that patent will need placement. CM sent referral via Care port to [facility]. CM will await acceptance.
Original Note:
Cm reviewed medical records. IMM given. Plan for discharge to home with outpatient pt.
Plan: home with outpatient PT.
[2025-01-29] MEDS: LIDOCAINE 4% PATCH 2 PATCH TOPICAL (11:16)
[2025-01-29] MEDS: TORADOL 10 MG IV (11:18)
[2025-01-29] MEDS: ANCEF 5 IV (11:20)
--- NOTE | 2025-01-29 11:22 | W.PN.ORTHO ---
Today's Communication / Plan
-
PT and OT are recommending SNF. Pt prefers [facility].
If bed available and remaining clinically stable, pt to be d/c later today.
Assessment
.
Distal Motor Intact: Yes
Dressing:
Scant old bleeding noted on dressing.
Assessment:
L hip OA s/p L JAMES w/ Dr Elizondo 01/28/25
- s/p remote R JAMES and b/l TKA at outside facility
DVT prophylaxis - Pradaxa 75 mg PO BID x1 month and b/l venous foot pumps
- Low dose Pradaxa started evening of POD [address] demonstrated no evidence of intracranial bleeding
- Plasma flow devices purchased for outpatient use upon d/c
HTN - + parameters - BPs stable
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
PAF, status post CV 2019; pharmacological therapy with Carvedilol and Amiodarone, previous oral anticoagulation with Pradaxa
- Rhythm stable on tele
- Continue BB and Amiodarone
- Pradaxa as stated above
Chronic SANCHEZ - O2 stable on RA
- IS
NIDDM, A1c 6.3 - BS readings overall stable w/ measures below
- Diabetic, carb controlled diet
- Resumed Metformin BID
- Added SSI AC, low dose Lantus HS during admission to accommodate for potential BS elevations d/t surgical stress, IV steroids in OR
- Pt requesting Prednisone taper for pain; given BS readings have been stable, will start a 20 mg taper today. Pt to continue Metformin and strict carb control
- Would benefit from Cefadroxil upon d/c
GERD - added Pepcid HS
IBS with constipation - added MOM HS to bowel regimen of Colace and Senna
- Adequate hydration, early mobility as tolerated, and minimizing opioids discussed pre-op
Hemorrhoids with GI bleed 10/2024 - minimized NSAIDs
- Of note, no recent bleeding reported
Ambulatory dysfunction with frequent falls - on fall precautions
- Head CT 01/28 w/o evidence of acute intracranial bleeding
Peripheral neuropathy - continue Gabapentin, Duloxetine
Iron deficiency anemia due to poor dietary intake, on oral supplementation - hgb 10.5 pre-op -> 9.6 today
- Asymptomatic, hemodynamically stable
- Continue PO iron
Hypercholesterolemia
PVD
Colon polyps
Cholelithiasis, asymptomatic
Migraines associated with cervical degenerative disc disease
Vertigo
Essential tremor
Polymyalgia rheumatica
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
Multilevel degenerative disc disease
Left-sided breast cancer, 2007, status post left lumpectomy, lymph node excision, and radiation
Overactive bladder
History of recurrent UTIs
Chronic right-sided peripheral vision loss
Insomnia
Prurigo nodularis
Osteoporosis
MRSA of left lower extremity 2016; at least 2 negative swabs since diagnosis
Poor historian
Plan
.
Surgery / Date: Nicolás RAMIREZ w/ Dr Elizondo 01/28/25
DVT Prophylaxis: Pradaxa
Activity:
Out of bed.
PT/OT
Discharge Plan: SNF
Subjective
.
.:
Patient examined resting in bed.
Complaints of L hip pain this morning; however, was due for pain meds.
Denies any other acute complaints.
Vital Signs and Labs
.
Vital Signs and Labs:
Lab Results
01/29/25 05:48
12/12/24 10:43
Temp Pulse Resp BP Pulse Ox
98.4 F 68 16 120/54 98
01/29/25 07:45 01/29/25 07:45 01/29/25 07:45 01/29/25 07:45 01/29/25 07:45
Physical Exam
-
HEENT: No pallor, cyanosis, or jaundice. Throat clear.
NECK: Supple. No JVD.
RESPIRATORY: Lungs clear to auscultation.
CVS: S1, S2 normal. RRR.�
ABDOMEN: Soft, non-tender. No distension.
EXTREMITIES: Strength equal, no calf pain with palpation/dorsiflexion. Calves soft.
FIELD MARKETING ASSOCIATE: AOx3. No focal deficits. stores despatch hand grossly intact
[2025-01-29 12:10] LABS: Glucose - Point of Care 161 mg/dl (70-99)
[2025-01-29 16:28] LABS: Glucose - Point of Care 214 mg/dl (70-99)
[2025-01-29] MEDS: NOVOLOG FLEXPEN-MODERATE RESISTANCE 3 UNITS SC (17:41)
[2025-01-29] MEDS: REMOVE LIDOCAINE PATCH 2 PATCH REMOVE (20:45)
[2025-01-29] MEDS: MELATONIN 10 MG PO (21:00)
[2025-01-29] MEDS: NORVASC 2.5 MG PO (21:00)
[2025-01-29] MEDS: MILK OF MAGNESIA 30 ML PO (21:00)
[2025-01-29] MEDS: LANTUS 0.05 UNITS SC (21:26)
[2025-01-29 21:28] LABS: Glucose - Point of Care 201 mg/dl (70-99)
[2025-01-30] MEDS: TYLENOL 650 MG PO ×3 (03:10→13:46)
[2025-01-30 03:19] VITALS: BP 113/56
[2025-01-30 07:13] LABS: Glucose - Point of Care 110 mg/dl (70-99)
--- NOTE | 2025-01-30 07:41 | CM ---
Addendum entered by Kenzie Meek RN 01/30/25 12:00:
CM met with patient and daughter in room. Updated with transfer plans.
Addendum entered by Kenzie Meek RN 01/30/25 10:40:
[facility]
Report
[phone]
fax
[phone]
Addendum entered by Kenzie Meek RN 01/30/25 10:19:
[facility] Authorization
LCD 02/11
Level II
[id number]
Addendum entered by Kenzie Meek RN 01/30/25 10:02:
JAMAR emailed [facility] discharge planning at [email or web address] with request for authorization update.
Addendum entered by Kenzie Meek RN 01/30/25 09:51:
JAMAR left message on voicemail at [facility] to request status update.
Original Note:
JAMAR received call from [employer]. CM left message to Lida at [employer].
[2025-01-30] MEDS: NOVOLOG FLEXPEN-MODERATE RESISTANCE SC ×2 (07:43→11:40)
[2025-01-30] MEDS: COREG PO (08:03)
[2025-01-30 08:04] VITALS: BP 100/43
[2025-01-30] MEDS: LIPITOR 20 MG PO (08:05)
[2025-01-30] MEDS: GLUCOPHAGE 500 MG PO (08:05)
[2025-01-30] MEDS: CYMBALTA DELAYED RELEASE 30 MG PO (08:05)
[2025-01-30] MEDS: NEURONTIN 300 MG PO (08:06)
[2025-01-30] MEDS: PRADAXA 75 MG PO (08:06)
[2025-01-30] MEDS: VITAMIN D3 (cholecalciferol) 25 MCG PO (08:06)
[2025-01-30] MEDS: FEOSOL 325 MG PO (08:07)
[2025-01-30] MEDS: PACERONE 200 MG PO (08:07)
[2025-01-30] MEDS: SENOKOT 17.2 MG PO (08:07)
[2025-01-30] MEDS: COLACE 100 MG PO (08:07)
[2025-01-30] MEDS: DELTASONE 20 MG PO (08:08)
[2025-01-30] MEDS: LIDOCAINE 4% PATCH 2 PATCH TOPICAL (08:09)
[2025-01-30] MEDS: NON-FORMULARY ITEM 75 MG PO (08:09)
--- NOTE | 2025-01-30 08:42 | W.PN.ORTHO ---
Today's Communication / Plan
-
D/c today to SNF if remaining clinically stable.
Assessment
.
Distal Motor Intact: Yes
Dressing:
Scant areas of old bleeding - unchanged since yesterday.
Assessment:
L hip OA s/p L JAMES w/ Dr Elizondo 01/28/25
- s/p remote R JAMES and b/l TKA at outside facility
DVT prophylaxis - Pradaxa 75 mg PO BID x1 month and b/l venous foot pumps
- Low dose Pradaxa started evening of POD [address] demonstrated no evidence of intracranial bleeding
- Plasma flow devices purchased for outpatient use upon d/c
Mild dizziness - ? related to soft BP this AM vs medication related (Gabapentin, Duloxetine) vs vertigo
- Will order 1x dose of Midodrine for BP. Did advise oral hydration, continuing TEDs, and minimizing opioids for BP stablilty
- Will order Meclizine prn in event vertigo related
- Did ask patient to cut back Gabapentin and Duloxetine should dizziness worsen
HTN - + parameters - BP soft but stable overall
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
PAF, status post CV 2019; pharmacological therapy with Carvedilol and Amiodarone, previous oral anticoagulation with Pradaxa
- Rhythm stable on tele
- Continue BB and Amiodarone
- Pradaxa as stated above
Chronic SANCHEZ - O2 stable on RA
- IS
NIDDM, A1c 6.3 - BS readings overall stable w/ measures below
- Diabetic, carb controlled diet
- Resumed Metformin BID
- Added SSI AC, low dose Lantus HS during admission to accommodate for potential BS elevations d/t surgical stress, IV steroids in OR
- Pt requesting Prednisone taper for pain; given BS readings have been stable, will start a 20 mg taper today. Pt to continue Metformin and strict carb control
- Would benefit from Cefadroxil upon d/c
GERD - added Pepcid HS
IBS with constipation - added MOM HS to bowel regimen of Colace and Senna
- Adequate hydration, early mobility as tolerated, and minimizing opioids discussed pre-op
Hemorrhoids with GI bleed 10/2024 - minimized NSAIDs
- Of note, no recent bleeding reported
Ambulatory dysfunction with frequent falls - on fall precautions
- Head CT 01/28 w/o evidence of acute intracranial bleeding
Peripheral neuropathy - continue Gabapentin, Duloxetine
Iron deficiency anemia due to poor dietary intake, on oral supplementation - hgb 10.5 pre-op -> 9.6 POD 1
- Remains hemodynamically stable
- Continue PO iron
Hypercholesterolemia
PVD
Colon polyps
Cholelithiasis, asymptomatic
Migraines associated with cervical degenerative disc disease
Vertigo
Essential tremor
Polymyalgia rheumatica
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
Multilevel degenerative disc disease
Left-sided breast cancer, 2007, status post left lumpectomy, lymph node excision, and radiation
Overactive bladder
History of recurrent UTIs
Chronic right-sided peripheral vision loss
Insomnia
Prurigo nodularis
Osteoporosis
MRSA of left lower extremity 2016; at least 2 negative swabs since diagnosis
Poor historian
Plan
.
Surgery / Date: L JAMES w/ Dr Elizondo 01/28/25
DVT Prophylaxis: Pradaxa
Activity:
Out of bed.
PT/OT
Discharge Plan: SNF
Subjective
.
.:
Patient resting comfortably in her chair this AM.
Mild dizziness but 'not overwhelming' per patient.
Denies any other significant acute complaints.
Eager for potential d/c today.
Vital Signs and Labs
.
Vital Signs and Labs:
Lab Results
01/29/25 05:48
12/12/24 10:43
Temp Pulse Resp BP Pulse Ox
98.4 F 71 20 100/43 99
01/30/25 03:19 01/30/25 08:24 01/30/25 08:04 01/30/25 08:24 01/30/25 03:19
Physical Exam
-
HEENT: No pallor, cyanosis, or jaundice. Throat clear.
NECK: Supple. No JVD.
RESPIRATORY: Lungs clear to auscultation.
CVS: S1, S2 normal. RRR.�
ABDOMEN: Soft, non-tender. No distension.
EXTREMITIES: Strength equal, no calf pain with palpation/dorsiflexion. Calves soft.
PRESCHOOL ADVISER: AOx3. No focal deficits. supervisor claims grossly intact
[2025-01-30 10:07] VITALS: BP 123/53
[2025-01-30] MEDS: ULTRAM 50 MG PO (10:08)
--- NOTE | 2025-01-30 11:05 | W.DS.TRANS ---
DC Summary - [employer]
-
Discharge Instructions:
Sleep Apnea Risk Intermediate
Discharge Diagnosis/Procedures L hip OA s/p L JAMES w/ Dr Elizondo 01/28/25
Diet Diabetic, Carb Controlled
Additional Diets Adequate hydration, minimize opioids, and wear
TEDs stockings to prevent low blood pressure/
dizziness.
Activity As tolerated,With Walker
Driving Restrictions Not until seen by your Dr
Bathing Restrictions OK to Shower
Other Services PT,OT
Wound Care Dressing to be removed 1 week post-surgery.
Instructions:
Stand-Alone Forms: Total Hip/Knee Replacement D/C
Changes to Home Medications: Yes
Discharge Medications:
DC Medications w/original date entered in [employer]
metformin 500 mg tablet 500 mg PO BID Diabetes 11/21/14
amiodarone 200 mg tablet 200 mg PO DAILY Arrhythmia 10/15/22
atorvastatin 20 mg tablet 20 mg PO DAILY High cholesterol 10/15/22
calcium 600 mg (as carbonate)-vit D3 20 mcg (800 unit) chewable tablet (Caltrate plus D) 1 tab PO DAILY Supplement 12/11/24
carvedilol 6.25 mg tablet 6.25 mg PO BID Blood Pressure 12/11/24
cholecalciferol (vitamin D3) 25 mcg (1,000 unit) tablet (Vitamin D3) 25 mcg PO DAILY Supplement 12/11/24
gabapentin 300 mg capsule 300 mg PO BID Neurological Condition 12/11/24
melatonin 10 mg tablet 10 mg PO HS Sleep 12/11/24
methocarbamol 500 mg tablet 500 mg PO BID PRN pain/spasms 12/11/24
multivitamin 1 tab PO DAILY Supplement 12/11/24
vibegron 75 mg tablet (Gemtesa) 75 mg PO DAILY OVERACTIVE BLADDER 12/11/24
ferrous sulfate 325 mg (65 mg iron) tablet 325 mg PO DAILY Supplement 01/26/25
mupirocin 2 % topical ointment 1 applic intranasal BID #1 tube 01/27/25
Barrier Cream 1 applic topical DAILYPRN PRN sacral breakdown ##0 01/29/25
Saccharomyces boulardii 250 mg capsule (Florastor) 250 mg PO DAILY #7 caps 01/29/25
acetaminophen 650 mg tablet,extended release 1,300 mg (2 x 650 mg) PO Q8H #60 tabs 01/29/25
amlodipine 2.5 mg tablet 2.5 mg PO HS Blood pressure #1 tab 01/29/25
cefadroxil 500 mg capsule 500 mg PO DAILY #7 caps 01/29/25
dabigatran etexilate 75 mg capsule (Pradaxa) 75 mg PO BID #60 caps 01/29/25
docusate sodium 100 mg capsule 100 mg PO BID #30 caps 01/29/25
duloxetine 30 mg capsule,delayed release 30 mg PO BID #30 caps 01/29/25
famotidine 20 mg tablet 20 mg PO Q48H #30 tabs 01/29/25
lidocaine 4 % topical patch 2 patch topical DAILY #30 ea 01/29/25
magnesium hydroxide 400 mg/5 mL oral suspension (Milk of Magnesia) 30 ml PO HS #3,000 mL 01/29/25
neomycin-bacitracn Zn-polymyx 3.5 mg-400 unit-5,000 unit/gram top oint (Triple Antibiotic) 1 applic topical DAILYPRN PRN Left LE wounds #14 grams 01/29/25
ondansetron HCl 4 mg tablet 4 mg PO Q6H PRN nausea and vomiting #30 tabs 01/29/25
prednisone 10 mg tablet 20 mg (2 x 10 mg) PO TAPER #9 tabs 01/29/25
sennosides 8.6 mg tablet (Michaela-ela) 17.2 mg (2 x 8.6 mg) PO BID #30 tabs 01/29/25
tramadol 50 mg tablet 50 - 100 mg (1 - 2 x 50 mg) PO Q6H PRN moderate-severe pain #15 tabs 01/29/25
meclizine 12.5 mg tablet 12.5 mg PO Q8HPRN PRN dizziness/vertigo #30 tabs 01/30/25
Home Medication Changes
Saccharomyces boulardii 250 mg capsule (Florastor) 250 mg PO DAILY #7 caps 01/29/25
acetaminophen 650 mg tablet,extended release 1,300 mg (2 x 650 mg) PO Q8H #60 tabs 01/29/25
cefadroxil 500 mg capsule 500 mg PO DAILY #7 caps 01/29/25
dabigatran etexilate 75 mg capsule (Pradaxa) 75 mg PO BID #60 caps 01/29/25
docusate sodium 100 mg capsule 100 mg PO BID #30 caps 01/29/25
duloxetine 30 mg capsule,delayed release 30 mg PO BID #30 caps 01/29/25
famotidine 20 mg tablet 20 mg PO Q48H #30 tabs 01/29/25
lidocaine 4 % topical patch 2 patch topical DAILY #30 ea 01/29/25
magnesium hydroxide 400 mg/5 mL oral suspension (Milk of Magnesia) 30 ml PO HS #3,000 mL 01/29/25
ondansetron HCl 4 mg tablet 4 mg PO Q6H PRN nausea and vomiting #30 tabs 01/29/25
prednisone 10 mg tablet 20 mg (2 x 10 mg) PO TAPER #9 tabs 01/29/25
sennosides 8.6 mg tablet (Michaela-ela) 17.2 mg (2 x 8.6 mg) PO BID #30 tabs 01/29/25
tramadol 50 mg tablet 50 - 100 mg (1 - 2 x 50 mg) PO Q6H PRN moderate-severe pain #15 tabs 01/29/25
meclizine 12.5 mg tablet 12.5 mg PO Q8HPRN PRN dizziness/vertigo #30 tabs 01/30/25
Pending Results: No
[2025-01-30 11:10] LABS: Glucose - Point of Care 160 mg/dl (70-99)
[2025-01-30 11:45] VITALS: BP 97/51
[2025-01-30] MEDS: METHOCARBAMOL 500 MG PO (13:47)
--- NOTE | 2025-01-30 14:10 | PTCARENOTE ---
RELAYED TO RECEIVING FACILITY RN, RAMSEY, THAT PATIENT RECEIVED 500MG METHOCARBAMOL AT 1347 AND 650MG TYLENOL AT 1346
== END 2025-01-30 14:17 | DRG 470 ==
LOC: 2 SOUTH 08:11
PROVIDERS: Physician Assistant; ADMITTING PHYSICIAN Orthopaedic Surgery; FAMILY PHYSICIAN Internal Medicine Geriatric Medicine; REFERRING PHYSICIAN Internal Medicine Cardiovascular Disease
PROC: 0SRB03A Replacement of Left Hip Joint with Ceramic Synthetic Substitute, Uncemented, Open Approach (ICD-10-PCS; 2025-01-28)
DX: M16.12 Unilateral primary osteoarthritis, left hip (principal); G90.511 Complex regional pain syndrome I of right upper limb; I48.0 Paroxysmal atrial fibrillation; Z96.653 Presence of artificial knee joint, bilateral; Z96.641 Presence of right artificial hip joint; D50.8 Other iron deficiency anemias; E11.40 Type 2 diabetes mellitus with diabetic neuropathy, unspecified; E78.00 Pure hypercholesterolemia, unspecified; G25.0 Essential tremor; G43.909 Migraine, unspecified, not intractable, without status migrainosus; G47.00 Insomnia, unspecified; H54.61 Unqualified visual loss, right eye, normal vision left eye; I10 Essential (primary) hypertension; K21.9 Gastro-esophageal reflux disease without esophagitis; K40.90 Unilateral inguinal hernia, without obstruction or gangrene, not specified as recurrent; K58.1 Irritable bowel syndrome with constipation; L28.1 Prurigo nodularis; M35.3 Polymyalgia rheumatica; M50.30 Other cervical disc degeneration, unspecified cervical region; M81.0 Age-related osteoporosis without current pathological fracture; N32.81 Overactive bladder; R29.6 Repeated falls; I25.2 Old myocardial infarction; Z79.01 Long term (current) use of anticoagulants; Z79.899 Other long term (current) drug therapy; Z79.84 Long term (current) use of oral hypoglycemic drugs; Z87.440 Personal history of urinary (tract) infections
CPT/HCPCS: 36415; 70450; 73502; 80053; 82962; 83036; 85014; 85018; 85027; 86850; 86900; 86901; 87070; 97116; 97167; 97530; C1713; C1776

== ENCOUNTER → 2025-05-13 12:39 | Outpatient (REF) | payer OTHER, SELFPAY ==
[2025-05-13 13:45] LABS: Hematocrit 41.4 % (37.0-47.0); Hemoglobin 12.5 g/dL (12.0-16.0); Mean Corp Hgb Conc. 30.2 g/dL (33.0-37.0); Mean Corpuscular Volume 98.3 fL (81.0-99.0); Nucleated Red Blood Cells % 0 %; Platelet Count 246 10^3/uL (130-400); Red Cell Dist. Width 14.1 % (11.5-14.5)
[2025-05-13 14:31] LABS: ALT (SGPT) 19 U/L (0-35); AST (SGOT) 22 U/L (14-36); Albumin 3.9 g/dl (3.5-5.0); Alkaline Phosphatase 80 U/L (38-126); Blood Urea Nitrogen 17 mg/dl (7-17); Calcium 8.8 mg/dl (8.4-10.2); Carbon Dioxide 29 mmol/L (22-30); Chloride 102 mmol/L (98-107); Glucose 182 mg/dl (70-99); HDL Cholesterol 75 mg/dl; Iron 52 ug/dl (37-170); LDL Cholesterol, Calculated 57 mg/dl; Potassium 3.8 mmol/L (3.5-5.1); Sodium 139 mmol/L (135-145); Total Protein 6.4 g/dl (6.3-8.2); Very Low Density Lipoprotein 23 mg/dl (0-30); eGFR > 60.00
[2025-05-13 14:41] LABS: Total Iron Binding Capacity 342 ug/dl (265-497)
[2025-05-13 16:56] LABS: Vitamin D, 25-OH*** 48.2 ng/mL (30-80)
[2025-05-13 17:10] LABS: TSH 1.08 uIU/ml (0.47-4.68)
[2025-05-13 17:14] LABS: Ferritin 26.7 ng/ml (11.1-264.0)
[2025-05-14 09:40] LABS: Glycohemoglobin (HgbA1c) 6.1 % (4.0-5.9)
== END ==
LOC: REG 12:39
PROVIDERS: ATTENDING PHYSICIAN Internal Medicine Geriatric Medicine
DX: I10 Essential (primary) hypertension (principal); E11.9 Type 2 diabetes mellitus without complications; E78.2 Mixed hyperlipidemia; I48.0 Paroxysmal atrial fibrillation; J47.9 Bronchiectasis, uncomplicated; F32.9 Major depressive disorder, single episode, unspecified; K21.9 Gastro-esophageal reflux disease without esophagitis; Z79.899 Other long term (current) drug therapy; E55.9 Vitamin D deficiency, unspecified; Z13.31 Encounter for screening for depression; Z23 Encounter for immunization; D50.0 Iron deficiency anemia secondary to blood loss (chronic)
CPT/HCPCS: 36415; 80053; 80061; 82306; 82728; 83036; 83540; 83550; 84439; 84443; 85025